=== PATIENT | female | born 1965 | race American Indian/Alaskan Native ===

== ENCOUNTER 2018-06-15 10:59 | Outpatient (CLI) | payer BC ==
--- NOTE | 2018-06-15 11:47 | Cat Scan Report ---
CT scan of pelvis without IV contrast: History: Right lower quadrant pain. Findings: Perivesical and perirectal adipose tissue appears normal. No free fluid in the cul-de-sac. No evidence of appendicitis or diverticulitis. Stool in colon. There is 3 circumscribed densities identified at the right lower inguinal area. The largest measures 4.2 cm. Impression: Multiple masses in the right inguinal region is probably multiple lymph nodes. Sonographic correlation may be advised.
== END 2018-06-15 11:00 | disposition home or self-care (01) ==
LOC: CT 10:59
PROVIDERS: ATTEND Surgery
DX: R19.09 Other intra-abdominal and pelvic swelling, mass and lump (principal)
CPT/HCPCS: 72192

== ENCOUNTER 2019-03-29 23:29 | Emergency (ER) | payer BC ==
[2019-03-30 00:06] LABS: Eosinophils # (Auto) 0.1 K/mm3 (0.0-0.4); Eosinophils % (Auto) 2.7 % (0.0-4.3); Monocytes # (Auto) 0.5 K/mm3 (0.0-0.8); Monocytes % (Auto) 13.7 % (0.0-7.3)
[2019-03-30 00:09] VITALS: BP 145/91
[2019-03-30] MEDS ORDERED: VICKS SINEX NS ONE (00:09)
[2019-03-30] MEDS ORDERED: VICKS SINEX ONE (00:12)
--- NOTE | 2019-03-30 00:22 | Emergency Department Report ---
ED ENT HPI - General Chief complaint: Nosebleed Stated complaint: NOSE/MOUTH BLEED Source: patient Mode of arrival: Ambulatory Limitations: No Limitations - History of Present Illness Initial comments: Mrs. Valderrama is a 53-year-old female with a history of glaucoma who presents with nosebleed from both nostrils since 3 PM this morning. She's had continuous bleeding from both nostrils since 3 PM. No history of URI symptoms. No history of seasonal allergies. She does not take any oral medications. Today she noticed 2 dark blisters in her mouth one on left inside of her left cheek and one on her left tongue. No previous history of bleeding or bruising. No recent use of antibiotics. No previous history of hypertension. No previous history of nosebleed. MD complaint: epistaxis -: Gradual, This afternoon Location: nose (both nostrils) Severity: mild Consistency: constant Improves with: other (ice application) Worsens with: none Associated Symptoms: other (blood-filled blisters on tongue and cheek) - Related Data Previous Rx's Medication Instructions Recorded Last Taken Type Prednisone [predniSONE 10 mg 10 mg PO .TAPER #1 tab.ds.pk 03/30/19 Unknown Rx (6-Day Pack, 21 Tabs)] Allergies Allergy/AdvReac Type Severity Reaction Status Date / Time No Known Allergies Allergy Unverified 06/15/18 10:59 ED Dental HPI - General Chief complaint: Nosebleed Stated complaint: NOSE/MOUTH BLEED Source: patient Mode of arrival: Ambulatory Limitations: No Limitations - Related Data Previous Rx's Medication Instructions Recorded Last Taken Type Prednisone [predniSONE 10 mg 10 mg PO .TAPER #1 tab.ds.pk 03/30/19 Unknown Rx (6-Day Pack, 21 Tabs)] Allergies Allergy/AdvReac Type Severity Reaction Status Date / Time No Known Allergies Allergy Unverified 06/15/18 10:59 ED Review of Systems ROS: Stated complaint: NOSE/MOUTH BLEED Other details as noted in HPI Comment: All other systems reviewed and negative Constitutional: denies: fever, malaise Cardiovascular: denies: chest pain Hematological/Lymphatic: denies: easy bleeding, easy bruising ED Past Medical Hx - Past Medical History Previous Medical History?: Yes Additional medical history: Glaucoma - Surgical History Past Surgical History?: No - Social History Smoking Status: Never Smoker Substance Use Type: None - Medications Home Medications: Home Medications Medication Instructions Recorded Confirmed Last Taken Type Prednisone [predniSONE 10 mg 10 mg PO .TAPER #1 tab.ds.pk 03/30/19 Unknown Rx (6-Day Pack, 21 Tabs)] ED Physical Exam - General Limitations: No Limitations General appearance: alert, in no apparent distress - Head Head exam: Present: atraumatic, normocephalic - Eye Eye exam: Present: normal appearance - ENT ENT exam: Present: mucous membranes moist (to dark blisters 1.5 cm left cheek inner mucosa, 0.9 cm dark blister anterior central tongue), other (mild amount of blood in both nostrils without active bleeding) - Neck Neck exam: Present: normal inspection - Respiratory Respiratory exam: Present: normal lung sounds bilaterally. Absent: respiratory distress, wheezes, rales, rhonchi - Cardiovascular Cardiovascular Exam: Present: regular rate, normal rhythm, normal heart sounds. Absent: systolic murmur, diastolic murmur, rubs, gallop - GI/Abdominal GI/Abdominal exam: Present: soft, normal bowel sounds. Absent: distended, tenderness, guarding, rebound - Extremities Exam Extremities exam: Present: normal inspection - Back Exam Back exam: Present: normal inspection - Neurological Exam Neurological exam: Present: alert, oriented X3 - Psychiatric Psychiatric exam: Present: normal affect, normal mood - Skin Skin exam: Present: warm, dry, intact, normal color. Absent: rash ED Course Vital Signs 03/29/19 03/30/19 23:34 00:07 Temperature 97.7 F 98.5 F Pulse Rate 90 79 Respiratory 20 16 Rate Blood Pressure 176/101 Blood Pressure 145/91 [Left] O2 Sat by Pulse 98 98 Oximetry ED Medical Decision Making - Lab Data Result diagrams: 03/29/19 23:51 03/29/19 23:51 - Medical Decision Making Mrs. Valderrama presents with epistaxis possibly posterior with bleeding from both nostril. Minor bleeding, not active in ED. AFter Afrin administration, no further bleeding,. With mouth blisters and thrombocytopenia, suspect ITP. Given Prednisone in the ED. Given prescription from Prednisone. She will f/u with her PCP on Monday. she will also make appt with cylinder press feeder to which she was referred. She und erstands to return is nosebleeding is not controlled at home with AFrin and pressure. She understands to return for bleeding from any other source. Critical care attestation.: If time is entered above; I have spent that time in minutes in the direct care of this critically ill patient, excluding procedure time. ED Disposition Clinical Impression: Epistaxis, Acute ITP Disposition: DC- TO HOME OR SELFCARE Is pt being admited?: No Does the pt Need Aspirin: No Condition: Stable Instructions: Thrombocytopenia (ED) Prescriptions: Prednisone [predniSONE 10 mg (6-Day Pack, 21 Tabs)] 10 mg PO .TAPER #1 tab.ds.pk Referrals: ARYAN SANON MD [Staff Physician] - [facility] [Referring] - F[facility]
[2019-03-30 00:26] LABS: BUN/Creatinine Ratio 10; Blood Urea Nitrogen 7 mg/dL (7-17); Calcium 9.3 mg/dL (8.4-10.2); Hemolysis Index 35
[2019-03-30 00:54] LABS: Hematocrit 36.9 % (30.3-42.9); Hemoglobin 12.6 gm/dl (10.1-14.3); Mean Corpuscular Volume 79 fl (79-97)
[2019-03-30 00:55] LABS: Basophils % (Auto) 0.3 % (0.0-1.8); Lymphocytes # (Auto) 1.6 K/mm3 (1.2-5.4); Lymphocytes % (Auto) 41.4 % (13.4-35.0); Mean Corpuscular HGB Conc 34 % (30-34); Red Cell Distribution Width 15.6 % (13.2-15.2)
[2019-03-30 00:58] LABS: Platelet Count 7 K/mm3 (140-440)
[2019-03-30] MEDS ORDERED: DELTASONE PO ONE (01:01)
== END 2019-03-30 01:25 | disposition home or self-care (01) ==
LOC: ED 23:29
DX: D69.3 Immune thrombocytopenic purpura (principal); Z86.69 Personal history of other diseases of the nervous system and sense organs
CPT/HCPCS: 36415; 80048; 85025; 99283; J7512

== ENCOUNTER 2019-04-01 12:13 | Inpatient (IN) | payer BC ==
--- NOTE | 2019-04-01 12:58 | Emergency Department Report ---
Blank Doc - Documentation Documentation: This is a 53-year-old female that presents with nose bleed. Patient was sent by PCP for low platelets. This initial assessment/diagnostic orders/clinical plan/treatment(s) is/are subject to change based on patient's health status, clinical progression and re- assessment by fellow clinical providers in the ED. Further treatment and workup at subsequent clinical providers discretion. Patient/guardians urged not to elope from the ED as their condition may be serious if not clinically assessed and managed. Initial orders include: 1- Patient sent to MAIN ED for further evaluation and treatment 2- labs
[2019-04-01 14:31] LABS: Basophils % (Auto) 0.3 % (0.0-1.8); Hematocrit 38.4 % (30.3-42.9); Lymphocytes # (Auto) 0.6 K/mm3 (1.2-5.4); Lymphocytes % (Auto) 9.1 % (13.4-35.0); Mean Corpuscular HGB Conc 34 % (30-34); Mean Corpuscular Volume 77 fl (79-97); Monocytes # (Auto) 0.2 K/mm3 (0.0-0.8); Monocytes % (Auto) 3.8 % (0.0-7.3); Red Blood Count 4.99 M/mm3 (3.65-5.03)
[2019-04-01 14:37] LABS: Platelet Count 7 K/mm3 (140-440)
[2019-04-01 14:41] LABS: INR 0.98 (0.87-1.13)
[2019-04-01 14:43] LABS: BUN/Creatinine Ratio 17; Blood Urea Nitrogen 12 mg/dL (7-17); Calcium 9.2 mg/dL (8.4-10.2); Hemolysis Index 9
[2019-04-01 14:49] LABS: Partial Thromboplastin Time 24.9 Sec. (24.2-36.6)
--- NOTE | 2019-04-01 18:09 | Emergency Department Report ---
HPI - General Chief Complaint: Nosebleed Time Seen by Provider: 04/01/19 12:57 - HPI HPI: Room 4 The patient is a 53-year-old female presenting with a chief complaint of thrombocytopenia. The patient states it is ago she developed nasal bleeding and bruising on the inside of her mouth. Patient states she came to the ED and was diagnosed with ITP and started on a prednisone taper. The patient states she went to see her primary physician today who [facility] back to the ED. Patient denies headache nausea or vomiting. Patient also has noticed small bruises diffusely over her body Location: [See above] Duration: [See above] Quality: [See above] Severity: [See above] Modifying factors: [see above] Context: [see above] Mode of transportation: [not driving] ED Past Medical Hx - Past Medical History Previous Medical History?: Yes Additional medical history: Glaucoma - Surgical History Past Surgical History?: No - Family History Family history: no significant - Social History Smoking Status: Never Smoker Substance Use Type: None - Medications Home Medications: Home Medications Medication Instructions Recorded Confirmed Last Taken Type Prednisone [predniSONE 10 mg 10 mg PO .TAPER #1 tab.ds.pk 03/30/19 Unknown Rx (6-Day Pack, 21 Tabs)] ED Review of Systems ROS: Stated complaint: DR REQUEST/BLEEDING FROM NOSE/MOUTH Other details as noted in HPI Constitutional: no symptoms reported Eyes: denies: eye pain ENT: denies: throat pain Respiratory: no symptoms reported Cardiovascular: denies: chest pain Endocrine: no symptoms reported Gastrointestinal: denies: abdominal pain, nausea, vomiting Genitourinary: denies: dysuria Musculoskeletal: denies: back pain Skin: lesions Neurological: denies: headache Hematological/Lymphatic: easy bleeding, easy bruising Physical Exam - Physical Exam Vital Signs: Vital Signs 04/01/19 12:51 Temperature 97.5 F L Pulse Rate 82 Respiratory 18 Rate Blood Pressure 148/88 O2 Sat by Pulse 99 Oximetry Physical Exam: GENERAL: The patient is well-developed well-nourished female lying on stretcher not appearing to be in acute distress. [] HEENT: Normocephalic. Atraumatic. Extraocular motions are intact. Buccal he matomas bilaterally NECK: Supple. Trachea midline CHEST/LUNGS: Clear to auscultation. There is no respiratory distress noted. HEART/CARDIOVASCULAR: Regular. There is no tachycardia. There is no gallop rub or murmur. ABDOMEN: Abdomen is soft, nontender. Patient has normal bowel sounds. There is no abdominal distention. SKIN: There are diffuse purpura. There is no diaphoresis. NEURO: The patient is awake, alert, and oriented. The patient is cooperative. The patient has normal speech MUSCULOSKELETAL: There is no evidence of acute injury. ED Course Vital Signs 04/01/19 12:51 Temperature 97.5 F L Pulse Rate 82 Respiratory 18 Rate Blood Pressure 148/88 O2 Sat by Pulse 99 Oximetry ED Medical Decision Making - Lab Data Result diagrams: 04/01/19 14:16 04/01/19 14:16 Laboratory Tests 04/01/19 04/01/19 04/01/19 14:16 14:16 14:16 WBC 6.4 RBC 4.99 Hgb 13.0 Hct 38.4 MCV 77 L MCH 26 L MCHC 34 RDW 15.0 Plt Count 7 L* Lymph % (Auto) 9.1 L [place] % (Auto) 3.8 Eos % (Auto) 0.0 Baso % (Auto) 0.3 Lymph # 0.6 L [place] # 0.2 Eos # 0.0 Baso # 0.0 Seg Neutrophils % 86.8 H Seg Neutrophils # 5.6 PT 12.7 INR 0.98 APTT 24.9 Sodium 135 L Potassium 3.6 Chloride 98.9 Carbon Dioxide 23 Anion Gap 17 BUN 12 Creatinine 0.7 Estimated GFR > 60 BUN/Creatinine Ratio 17 Glucose 172 H Calcium 9.2 Blood Type Antibody Screen 04/01/19 14:20 WBC RBC Hgb Hct MCV MCH MCHC RDW Plt Count Lymph % (Auto) [place] % (Auto) Eos % (Auto) Baso % (Auto) Lymph # [place] # Eos # Baso # Seg Neutrophils % Seg Neutrophils # PT INR APTT Sodium Potassium Chloride Carbon Dioxide Anion Gap BUN Creatinine Estimated GFR BUN/Creatinine Ratio Glucose Calcium Blood Type O POSITIVE Antibody Screen Negative - Differential Diagnosis ITP Critical care attestation.: If time is entered above; I have spent that time in minutes in the direct care of this critically ill patient, excluding procedure time. ED Disposition Clinical Impression: Acute ITP Disposition: OP ADMIT IP TO THIS HOSP Is pt being admited?: Yes Does the pt Need Aspirin: No Condition: Fair Referrals: JULIO C CHANG MD [Primary Care Provider] - 3-5 Days Time of Disposition: 18:11 (hospitalist paged (Dr Rose))
[2019-04-01] MEDS ORDERED: SODIUM CHLORIDE FLUSH SYRINGE 10 ML IV PRN (18:30)
[2019-04-01] MEDS ORDERED: PROVENTIL IH PRN (18:30)
--- NOTE | 2019-04-01 18:48 | History and Physical Report ---
History of Present Illness Chief complaint: My nose was bleeding History of present illness: 53 YO Female with glaucoma, thrombocytopenia presents to ED for reevaluation. Pt seen and evaluated on 03/31/19 for thrombocytopenia. Pt discharged home with steroid therapy and outpatient platelet transfusion. Pt returns today at the request of her PCP for platelet transfusion. Pt transported to [facility] via private vehicle. Pt seen and evaluated in ED and foung to have Thrombocytopenia with platelet count of 7 without evidence of active bleeding. Pt denies fever, chills, CP, palpitations, joint pain, trauma, cough, leg swelling, abdominal pain, flank pain or recent ill contacts. Platelet transfusion and IVIG ordered in ED prior to my exam. Hematology service consulted in ED and recommend IVIG and platelet transfusion. No prior admission for review. PT admitted to [facility] for platelet transfusion as per Hematology recommendations. Past History Past Medical History: other (glaucoma,thrombocytopenia) Past Surgical History: No surgical history, Other (reviewed) Social history: . denies: smoking, alcohol abuse, prescription drug abuse Family history: no significant family history Medications and Allergies Allergies Allergy/AdvReac Type Severity Reaction Status Date / Time No Known Allergies Allergy Unverified 06/15/18 10:59 Home Medications Medication Instructions Recorded Confirmed Last Taken Type Prednisone [predniSONE 10 mg 10 mg PO .TAPER #1 tab.ds.pk 03/30/19 Unknown Rx (6-Day Pack, 21 Tabs)] Active Meds: Active Medications Albuterol (Proventil) 2.5 mg IH Q3HRT PRN PRN Reason: Shortness Of Breath Sodium Chloride (Sodium Chloride Flush Syringe 10 Ml) 10 ml IV BID HODAN Sodium Chloride (Sodium Chloride Flush Syringe 10 Ml) 10 ml IV PRN PRN PRN Reason: LINE FLUSH Review of Systems Constitutional: no weight loss, no weight gain, no fever Ears, nose, mouth and throat: epistaxis, no ear discharge, no tinnitis, no nose pain, no nasal congestion, no bleeding gums, no dysphagia, no hoarseness, no sore throat, no swelling in mouth Breasts: no change in shape, no swelling, no mass Cardiovascular: no chest pain, no orthopnea, no palpitations, no edema, no syncope Respiratory: no cough, no cough with sputum, no excessive sputum, no shortness of breath Gastrointestinal: no abdominal pain, no nausea, no diarrhea, no constipation Genitourinary Female: no pelvic pain, no flank pain, no dysuria, no urinary frequency Rectal: no pain, no incontinence Musculoskeletal: no neck pain, no shooting arm pain, no arm numbness/tingling Integumentary: no pruritis, no redness, no sores, no boils, no blisters Neurological: no head injury, no paralysis, no vertigo, no headaches, no migraines Psychiatric: no anxiety, no sleep disturbances, no hypersomnia, no change in libido, no disorientation Endocrine: no cold intolerance, no polyphagia, no polydipsia, no nocturia Hematologic/Lymphatic: no easy bruising, no easy bleeding, no lymphadenopathy, no lymphedema Allergic/Immunologic: no urticaria, no allergic rhinitis, no persistent infections, no anaphylaxis Exam - Constitutional Vitals: Temp Pulse Resp BP Pulse Ox 97.5 F L 82 18 148/88 100 04/01/19 12:51 04/01/19 12:51 04/01/19 18:32 04/01/19 12:51 04/01/19 18:32 General appearance: Present: no acute distress, well-nourished - EENT Eyes: Present: PERRL ENT: hearing intact, clear oral mucosa - Neck Neck: Present: supple, normal ROM - Respiratory Respiratory effort: normal Respiratory: bilateral: CTA - Cardiovascular Heart Sounds: Present: S1 & S2. Absent: rub, click - Extremities Extremities: pulses symmetrical, No edema Peripheral Pulses: within normal limits - Abdominal General gastrointestinal: Present: soft, non-tender, non-distended, normal bowel sounds Female genitourinary: Present: normal - Integumentary Integumentary: Present: clear, warm, dry - Musculoskeletal Musculoskeletal: gait normal, strength equal bilaterally - Psychiatric Psychiatric: appropriate mood/affect, intact judgment & insight - Neurologic Neurologic: CNII-XII intact, moves all extremities Results - Labs CBC & Chem 7: 04/02/19 04:44 04/02/19 04:44 Labs: Abnormal lab results 04/01/19 04/01/19 Range/Units 14:16 14:16 MCV 77 L (79-97) fl MCH 26 L (28-32) pg Plt Count 7 L* (140-440) K/mm3 Lymph % (Auto) 9.1 L (13.4-35.0) % Lymph # 0.6 L (1.2-5.4) K/mm3 Seg Neutrophils % 86.8 H (40.0-70.0) % Sodium 135 L (137-145) mmol/L Glucose 172 H (65-100) mg/dL Assessment and Plan - Patient Problems (1) Acute ITP Current Visit: Yes Status: Acute Plan to address problem: Hemotology consulted in ED, Admit to IMCU, Platelet transfusion and IVIG infusion as per Hemotology team. supportive care. (2) Epistaxis Current Visit: No Status: Acute Plan to address problem: Resolved at time of admission, No active bleeding, (3) DVT prophylaxis Current Visit: Yes Status: Acute Plan to address problem: Hold anticoagulation at this dime due to risk of bleeding.
--- NOTE | 2019-04-01 21:47 | Event Note ---
Date: 04/01/19 [id number]?
[2019-04-01] MEDS ORDERED: GAMMAGARD IV SCH (22:00)
[2019-04-01] MEDS ORDERED: PRIVIGEN IV SCH (22:00)
[2019-04-01] MEDS ORDERED: VIAFLEX EMPTY CONTAINER IV SCH ×2 (22:00)
[2019-04-01] MEDS: SODIUM CHLORIDE FLUSH SYRINGE 10 ML IV SCH (22:51)
[2019-04-02 05:11] LABS: Basophils % (Auto) 0.3 % (0.0-1.8); Eosinophils % (Auto) 0.6 % (0.0-4.3); Hematocrit 35.3 % (30.3-42.9); Hemoglobin 11.7 gm/dl (10.1-14.3); Lymphocytes # (Auto) 1.5 K/mm3 (1.2-5.4); Lymphocytes % (Auto) 19.1 % (13.4-35.0); Mean Corpuscular HGB Conc 33 % (30-34); Mean Corpuscular Volume 79 fl (79-97); Monocytes # (Auto) 1.2 K/mm3 (0.0-0.8); Monocytes % (Auto) 15.6 % (0.0-7.3); Red Blood Count 4.49 M/mm3 (3.65-5.03); Red Cell Distribution Width 15.3 % (13.2-15.2)
[2019-04-02 05:45] LABS: Platelet Count 4 K/mm3 (140-440)
[2019-04-02 06:16] LABS: Alanine Aminotransferase 41 units/L (7-56); Albumin 3.3 g/dL (3.9-5); BUN/Creatinine Ratio 20; Blood Urea Nitrogen 12 mg/dL (7-17); Calcium 9.3 mg/dL (8.4-10.2); Hemolysis Index 25; Iron 53 ug/dL (37-170); Total Iron Binding Capacity 259 mcg/dL (250-450)
--- NOTE | 2019-04-02 06:21 | Event Note ---
Date: 04/02/19 Received call from CHAYA Kelly for critical lab value, PLT 4. Pt received IVIG 3.2g at 2251 (04/01/19). Ordered stat repeat CBC and advised RN to notify Dr. Miller (plasterer spot) of critical lab value.
[2019-04-02] MEDS ORDERED: DELTASONE ONE (07:31)
[2019-04-02] MEDS: DELTASONE PO SCH ×2 (07:34→09:32)
[2019-04-02 08:24] LABS: Basophils % (Auto) 0.3 % (0.0-1.8); Eosinophils # (Auto) 0.1 K/mm3 (0.0-0.4); Eosinophils % (Auto) 0.8 % (0.0-4.3); Hematocrit 36.2 % (30.3-42.9); Hemoglobin 12.1 gm/dl (10.1-14.3); Lymphocytes # (Auto) 1.8 K/mm3 (1.2-5.4); Lymphocytes % (Auto) 20.3 % (13.4-35.0); Mean Corpuscular HGB Conc 34 % (30-34); Mean Corpuscular Volume 78 fl (79-97); Monocytes # (Auto) 1.1 K/mm3 (0.0-0.8); Monocytes % (Auto) 12.1 % (0.0-7.3); Red Blood Count 4.66 M/mm3 (3.65-5.03); Red Cell Distribution Width 15.2 % (13.2-15.2)
[2019-04-02 09:12] LABS: Platelet Count 16 K/mm3 (140-440)
[2019-04-02] MEDS: SODIUM CHLORIDE FLUSH SYRINGE 10 ML IV SCH ×2 (09:33→22:49)
[2019-04-02] MEDS: PROTONIX PO SCH (09:33)
[2019-04-02] MEDS ORDERED: PROTONIX PO ONE (09:36)
[2019-04-02] MEDS ORDERED: DELTASONE PO SCH (10:00)
--- NOTE | 2019-04-02 12:56 | Hem/Onc Progress Note ---
Assessment and Plan 1. 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 The etiology is not clear, usually they have viral etiology preceding, or medication. 2. Oral ecchymosis secondary to low platelets 3. History of glaucoma. 4. IVIG, smear evaluation, deficiency investigation. If there are more symptoms, we will look into platelet transfusion. 04/02 - h/o nose bleed low folate - replace plt 16 - will ct ivig pt on PPI and steroids - Patient Problems (1) Acute ITP Current Visit: Yes Status: Acute Subjective Date of service: 04/02/19 Principal diagnosis: ITP Interval history: s/p ivig Objective - Constitutional Vitals: Last Vital Signs Temp 97.5 F L 04/01/19 12:51 Pulse 71 04/02/19 10:00 Resp 16 04/02/19 10:00 BP 151/82 04/02/19 10:00 Pulse Ox 92 04/02/19 10:00 Pain Intensity (0-10): denies any pain General appearance: no acute distress Performance status: 2- selfcare, ambulatory - EENT Eyes: EOM intact ENT: hearing intact, other (oral echymosis) Lymph node exam: negative cervical - Neck Neck: normal ROM - Respiratory Respiratory effort: Positive: normal Respiratory: bilateral: CTA - Cardiovascular Heart Sounds: Present: S1 & S2 Extremities: No edema - Gastrointestinal General gastrointestinal: Present: soft, non-tender Rectal Exam: deferred - Genitourinary Female genitourinary: Present: deferred - Integumentary Integumentary: warm - Musculoskeletal Musculoskeletal: strength equal bilaterally - Neurologic Neurologic: moves all extremities - Labs Lab Results: Laboratory Results - last 24 hr 04/01/19 04/01/19 04/01/19 14:16 14:16 14:16 WBC 6.4 RBC 4.99 Hgb 13.0 Hct 38.4 MCV 77 L MCH 26 L MCHC 34 RDW 15.0 Plt Count 7 L* Lymph % (Auto) 9.1 L [place] % (Auto) 3.8 Eos % (Auto) 0.0 Baso % (Auto) 0.3 Lymph # 0.6 L [place] # 0.2 Eos # 0.0 Baso # 0.0 Seg Neutrophils % 86.8 H Seg Neutrophils # 5.6 PT 12.7 INR 0.98 APTT 24.9 Sodium 135 L Potassium 3.6 Chloride 98.9 Carbon Dioxide 23 Anion Gap 17 BUN 12 Creatinine 0.7 Estimated GFR > 60 BUN/Creatinine Ratio 17 Glucose 172 H Calcium 9.2 Iron TIBC Ferritin Total Bilirubin AST ALT Alkaline Phosphatase Total Protein Albumin Albumin/Globulin Ratio Vitamin B12 Folate Blood Type Antibody Screen 04/01/19 04/02/19 04/02/19 14:20 04:44 04:44 WBC 7.8 RBC 4.49 Hgb 11.7 Hct 35.3 MCV 79 MCH 26 L MCHC 33 RDW 15.3 H Plt Count 4 L* Lymph % (Auto) 19.1 [place] % (Auto) 15.6 H Eos % (Auto) 0.6 Baso % (Auto) 0.3 Lymph # 1.5 [place] # 1.2 H Eos # 0.0 Baso # 0.0 Seg Neutrophils % 64.4 Seg Neutrophils # 5.0 PT INR APTT Sodium 137 Potassium 3.7 Chloride 100.3 Carbon Dioxide 25 Anion Gap 15 BUN 12 Creatinine 0.6 L Estimated GFR > 60 BUN/Creatinine Ratio 20 Glucose 99 Calcium 9.3 Iron 53 TIBC 259 Ferritin Total Bilirubin 0.30 AST 36 ALT 41 Alkaline Phosphatase 136 H Total Protein 7.1 Albumin 3.3 L Albumin/Globulin Ratio 0.9 Vitamin B12 Folate Blood Type O POSITIVE Antibody Screen Negative 04/02/19 04/02/19 04/02/19 04:44 04:44 04:44 WBC RBC Hgb Hct MCV MCH MCHC RDW Plt Count Lymph % (Auto) [place] % (Auto) Eos % (Auto) Baso % (Auto) Lymph # [place] # Eos # Baso # Seg Neutrophils % Seg Neutrophils # PT INR APTT Sodium Potassium Chloride Carbon Dioxide Anion Gap BUN Creatinine Estimated GFR BUN/Creatinine Ratio Glucose Calcium Iron TIBC Ferritin 63.0 Total Bilirubin AST ALT Alkaline Phosphatase Total Protein Albumin Albumin/Globulin Ratio Vitamin B12 575.2 Folate 6.81 L Blood Type Antibody Screen 04/02/19 08:20 WBC 9.1 RBC 4.66 Hgb 12.1 Hct 36.2 MCV 78 L MCH 26 L MCHC 34 RDW 15.2 Plt Count 16 L* D Lymph % (Auto) 20.3 [place] % (Auto) 12.1 H Eos % (Auto) 0.8 Baso % (Auto) 0.3 Lymph # 1.8 Reeves # 1.1 H Eos # 0.1 Baso # 0.0 Seg Neutrophils % 66.5 Seg Neutrophils # 6.0 PT INR APTT Sodium Potassium Chloride Carbon Dioxide Anion Gap BUN Creatinine Estimated GFR BUN/Creatinine Ratio Glucose Calcium Iron TIBC Ferritin Total Bilirubin AST ALT Alkaline Phosphatase Total Protein Albumin Albumin/Globulin Ratio Vitamin B12 Folate Blood Type Antibody Screen Medications & Allergies - Medications Allergies/Adverse Reactions: Allergies No Known Allergies Allergy (Unverified 06/15/18 10:59) Home Medications: Home Medications Medication Instructions Recorded Confirmed Last Taken Type Prednisone [predniSONE 10 mg 10 mg PO .TAPER #1 tab.ds.pk 03/30/19 04/02/19 04/02/19 Rx (6-Day Pack, 21 Tabs)] Latanoprost 0.005% [Xalatan 0.005%] 1 drop OU HS 04/02/19 04/02/19 Unknown History Active Medications: Generic Name Dose Route Start Last Admin Trade Name Freq PRN Reason Stop Dose Admin Albuterol 2.5 mg 04/01/19 18:30 Proventil IH Q3HRT PRN Shortness Of Breath Folic Acid 1 mg 04/02/19 14:00 Folvite PO QDAY HODAN Immune Globulin 32 gm/ 320 mls @ 32 mls/hr 04/02/19 22:00 Miscellaneous Information IV 04/06/19 21:59 Q24H HODAN Pantoprazole Sodium 40 mg 04/02/19 10:00 04/02/19 09:33 Protonix PO 40 mg QDAY HODAN Administration Prednisone 60 mg 04/02/19 06:25 04/02/19 09:32 Deltasone PO Not Given QDAY HODAN Sodium Chloride 10 ml 04/01/19 22:00 04/02/19 09:33 Sodium Chloride Flush Syringe 10 Ml IV 10 ml BID HODAN Administration Sodium Chloride 10 ml 04/01/19 18:30 Sodium Chloride Flush Syringe 10 Ml IV PRN PRN LINE FLUSH
[2019-04-02] MEDS: FOLVITE PO SCH (14:50)
--- NOTE | 2019-04-02 16:17 | Progress Note ---
Assessment and Plan Assessment and plan: 53 YO Female with glaucoma, thrombocytopenia presents to ED for reevaluation. Pt seen and evaluated on 03/31/19 for thrombocytopenia. Pt discharged home with steroid therapy and outpatient platelet transfusion. Pt returns today at the request of her PCP for platelet transfusion. Pt transported to [facility] via private vehicle. Pt seen and evaluated in ED and foung to have Thrombocytopenia with platelet count of 7 without evidence of active bleeding. Pt denies fever, chills, CP, palpitations, joint pain, trauma, cough, leg swelling, abdominal pain, flank pain or recent ill contacts. Platelet transfusion and IVIG ordered in ED prior to my exam. Hematology service consulted in ED and recommend IVIG and platelet transfusion. No prior admission for review. PT admitted to IMCU for platelet transfusion as per Hematology recommendations. Severe thrombocytopenia - Patient was given IVIG - Hematology oncology consult appreciated - Platelet this morning with 8 - Follow platelet - No active bleeding DVT prophylaxis - SCD Disposition - Continue IMCU care History Interval history: Patient was seen and evaluated this morning, patient has minimal bleeding from the mouth. No bleeding from other parts of her body. Hospitalist Physical - Physical exam Narrative exam: Not in cardiopulmonary distress. The patient appeared well nourished and normally developed. Vital signs as documented. Head exam is unremarkable. Dusky discoloration in the bucca mucosa, likely due to petechiae. No scleral icterus . Neck is without jugular venous distension, thyromegaly, or carotid bruits. Lungs are clear to auscultation. Cardiac exam reveals regular rate and Rhythm. First and second heart sounds normal. No murmurs, rubs or gallops. Abdominal exam reveals normal bowel sounds, no masses, no organomegaly and no aortic enlargement. Extremities are nonedematous and both femoral and pedal pulses are normal. CYCLE SPECIALIST: Alert and oriented 3. No focal weakness. - Constitutional Vitals: Temp Pulse Resp BP Pulse Ox 97.5 F L 86 16 129/74 97 04/01/19 12:51 04/02/19 13:00 04/02/19 13:00 04/02/19 13:00 04/02/19 13:00 General appearance: Present: no acute distress, well-nourished Results - Labs CBC & Chem 7: 04/03/19 13:20 04/03/19 05:47 Labs: Laboratory Last Values WBC 9.1 K/mm3 (4.5-11.0) 04/02/19 08:20 RBC 4.66 M/mm3 (3.65-5.03) 04/02/19 08:20 Hgb 12.1 gm/dl (10.1-14.3) 04/02/19 08:20 Hct 36.2 % (30.3-42.9) 04/02/19 08:20 MCV 78 fl (79-97) L 04/02/19 08:20 MCH 26 pg (28-32) L 04/02/19 08:20 MCHC 34 % (30-34) 04/02/19 08:20 RDW 15.2 % (13.2-15.2) 04/02/19 08:20 Plt Count 16 K/mm3 (140-440) L* D 04/02/19 08:20 Lymph % (Auto) 20.3 % (13.4-35.0) 04/02/19 08:20 [place] % (Auto) 12.1 % (0.0-7.3) H 04/02/19 08:20 Eos % (Auto) 0.8 % (0.0-4.3) 04/02/19 08:20 Baso % (Auto) 0.3 % (0.0-1.8) 04/02/19 08:20 Lymph # 1.8 K/mm3 (1.2-5.4) 04/02/19 08:20 [place] # 1.1 K/mm3 (0.0-0.8) H 04/02/19 08:20 Eos # 0.1 K/mm3 (0.0-0.4) 04/02/19 08:20 Baso # 0.0 K/mm3 (0.0-0.1) 04/02/19 08:20 Seg Neutrophils % 66.5 % (40.0-70.0) 04/02/19 08:20 Seg Neutrophils # 6.0 K/mm3 (1.8-7.7) 04/02/19 08:20 PT 12.7 Sec. (12.2-14.9) 04/01/19 14:16 INR 0.98 (0.87-1.13) 04/01/19 14:16 APTT 24.9 Sec. (24.2-36.6) 04/01/19 14:16 Sodium 137 mmol/L (137-145) 04/02/19 04:44 Potassium 3.7 mmol/L (3.6-5.0) 04/02/19 04:44 Chloride 100.3 mmol/L (98-107) 04/02/19 04:44 Carbon Dioxide 25 mmol/L (22-30) 04/02/19 04:44 15 mmol/L 04/02/19 04:44 BUN 12 mg/dL (7-17) 04/02/19 04:44 0.6 mg/dL (0.7-1.2) L 04/02/19 04:44 Estimated GFR > 60 ml/min 04/02/19 04:44 20 % 04/02/19 04:44 Glucose 99 mg/dL (65-100) 04/02/19 04:44 Calcium 9.3 mg/dL (8.4-10.2) 04/02/19 04:44 Iron 53 ug/dL (37-170) 04/02/19 04:44 TIBC 259 mcg/dL (250-450) 04/02/19 04:44 63.0 ng/mL (13.0-400.0) 04/02/19 04:44 0.30 mg/dL (0.1-1.2) 04/02/19 04:44 AST 36 units/L (5-40) 04/02/19 04:44 ALT 41 units/L (7-56) 04/02/19 04:44 136 units/L (35-129) H 04/02/19 04:44 7.1 g/dL (6.3-8.2) 04/02/19 04:44 3.3 g/dL (3.9-5) L 04/02/19 04:44 0.9 % 04/02/19 04:44 Vitamin B12 575.2 pg/mL (211-911) 04/02/19 04:44 6.81 ng/mL (7.3-26.0) L 04/02/19 04:44 Blood Type O POSITIVE 04/01/19 14:20 Antibody Screen Negative 04/01/19 14:20 Active Medications - Current Medications Current Medications: Generic Name Dose Route Start Last Admin Trade Name Freq PRN Reason Stop Dose Admin Albuterol 2.5 mg 04/01/19 18:30 Proventil IH Q3HRT PRN Shortness Of Breath Folic Acid 1 mg 04/02/19 14:00 Folvite PO QDAY HODAN Immune Globulin 32 gm/ 320 mls @ 32 mls/hr 04/02/19 22:00 Miscellaneous Information IV 04/06/19 21:59 Q24H HODAN Pantoprazole Sodium 40 mg 04/02/19 10:00 04/02/19 09:33 Protonix PO 40 mg QDAY HODAN Administration Prednisone 60 mg 04/02/19 06:25 04/02/19 09:32 Deltasone PO Not Given QDAY HODAN Sodium Chloride 10 ml 04/01/19 22:00 04/02/19 09:33 Sodium Chloride Flush Syringe 10 Ml IV 10 ml BID HODAN Administration Sodium Chloride 10 ml 04/01/19 18:30 Sodium Chloride Flush Syringe 10 Ml IV PRN PRN LINE FLUSH
[2019-04-02] MEDS: VIAFLEX EMPTY CONTAINER IV SCH (22:48)
[2019-04-02] MEDS: PRIVIGEN IV SCH (22:48)
--- NOTE | 2019-04-03 06:03 | Consultation ---
REFERRING PHYSICIAN: Dr. Salazar. REASON FOR CONSULTATION: Thrombocytopenia, bruises, nosebleed. HISTORY OF PRESENT ILLNESS: I saw the patient, a 53-year-old female in the medical floor. The patient had nosebleed on Monday. She came to the ER. The patient has history of glaucoma. The patient ate garlic and she thinks that had some role, but after she came to the hospital, platelet was found to be low. She was discharged for outpatient followup. She saw ____, the primary care, who called me to say the platelet counts were low and she sent the patient back. The patient also had history of bruises/ecchymosis, the nosebleed is intermittent. The patient's platelets were low. I have been asked to evaluate the patient. Apart from the nosebleed, no other bleeding. There is also some mild discomfort. No headache. No visual disturbances. No chest pain. No shortness of breath at rest. No abdominal pain. No nausea. No vomiting. No diarrhea. No dysuria. The patient denies any recent travel. No history of sinus infection, flu-like symptoms or urinary tract infection in the recent past. No new medications. PAST MEDICAL HISTORY: Glaucoma, newly diagnosed thrombocytopenia. PAST SURGICAL HISTORY: Nil significant. SOCIAL HISTORY: . No history of tobacco or alcohol usage. FAMILY HISTORY: Noncontributory. The patient is from [facility]. ALLERGIES: None. MEDICATIONS: The patient was in the ER and was discharged with prednisone. PHYSICAL EXAMINATION: VITAL SIGNS: Temperature 97.5, pulse 82, respirations 18, BP 148/88. HEENT: No pallor. No icterus. Oral ecchymosis present. NECK: No neck lymph nodes. HEART: S1, S2. LUNGS: Clear to auscultation. ABDOMEN: Soft. EXTREMITIES: No calf tenderness. NEUROLOGIC: Alert, awake, oriented. LABORATORY DATA: White cell 6.4, hemoglobin 13, MCV 77, platelet 7. Potassium 3.6, creatinine 0.7, calcium 9.2. ASSESSMENT: 1. 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 The etiology is not clear, usually they have viral etiology preceding, not medication. 2. Oral ecchymosis secondary to low platelets 3. History of glaucoma. 4. We will look into IVIG, smear evaluation, deficiency investigation. If there are more symptoms, we will look into platelet transfusion. JOB# [id number] LARISSA/JESSE
[2019-04-03 06:13] LABS: Hematocrit 35.1 % (30.3-42.9); Hemoglobin 11.5 gm/dl (10.1-14.3); Mean Corpuscular HGB Conc 33 % (30-34); Mean Corpuscular Volume 80 fl (79-97); Red Blood Count 4.41 M/mm3 (3.65-5.03); Red Cell Distribution Width 15.4 % (13.2-15.2)
[2019-04-03 06:22] LABS: Platelet Count 5 K/mm3 (140-440)
[2019-04-03 06:34] LABS: BUN/Creatinine Ratio 15; Blood Urea Nitrogen 9 mg/dL (7-17); Calcium 9.1 mg/dL (8.4-10.2); Hemolysis Index 8
--- NOTE | 2019-04-03 07:43 | Hem/Onc Progress Note ---
Assessment and Plan 1. 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 The etiology is not clear, usually they have viral etiology preceding, or medication. 2. Oral ecchymosis secondary to low platelets 3. History of glaucoma. 4. IVIG, smear evaluation, deficiency investigation. 04/03 - h/o nose bleed low folate - replace plt lower than yesterday - will ct ivig pt on PPI and steroids pharmacy called - shortage of ivig path called - low plt no other wbc abnormality plt transfusion if no improvement - splenectomy vs rituxan - vs time for steroids to act? - Patient Problems (1) Acute ITP Current Visit: Yes Status: Acute Subjective Date of service: 04/03/19 Principal diagnosis: low plt Interval history: ivig - day 3 today Objective - Constitutional Vitals: Last Vital Signs Temp 98.4 F 04/03/19 04:00 Pulse 83 04/03/19 03:40 Resp 13 04/03/19 03:40 BP 140/80 04/03/19 03:40 Pulse Ox 98 04/03/19 03:40 Pain Intensity (0-10): denies any pain General appearance: no acute distress Performance status: 3-limited selfcare - EENT Eyes: EOM intact ENT: other (echymosis - oral - buccal mucosa) Lymph node exam: negative cervical - Neck Neck: normal ROM - Respiratory Respiratory effort: Positive: normal Respiratory: bilateral: CTA - Cardiovascular Heart Sounds: Present: S1 & S2 Extremities: normal temperature - Gastrointestinal General gastrointestinal: Present: soft, non-tender Rectal Exam: deferred - Genitourinary Female genitourinary: Present: deferred - Integumentary Integumentary: warm - Musculoskeletal Musculoskeletal: generalized weakness - Neurologic Neurologic: moves all extremities - Labs Lab Results: Laboratory Results - last 24 hr 04/02/19 04/03/19 04/03/19 08:20 05:47 05:47 WBC 9.1 6.2 RBC 4.66 4.41 Hgb 12.1 11.5 Hct 36.2 35.1 MCV 78 L 80 MCH 26 L 26 L MCHC 34 33 RDW 15.2 15.4 H Plt Count 16 L* D 5 L* Lymph % (Auto) 20.3 [employer] Sales Account Executive [place] % (Auto) 12.1 H [employer] Sales Account Executive Eos % (Auto) 0.8 [employer] Sales Account Executive Baso % (Auto) 0.3 [employer] Sales Account Executive Lymph # 1.8 [employer] Sales Account Executive [place] # 1.1 H [employer] Sales Account Executive Eos # 0.1 Radio Sales Account Executive Baso # 0.0 Radio Sales Account Executive Seg Neutrophils % 66.5 Radio Sales Account Executive Seg Neutrophils # 6.0 Radio Sales Account Executive Sodium 139 Potassium 3.7 Chloride 100.7 Carbon Dioxide 28 Anion Gap 14 BUN 9 Creatinine 0.6 L Estimated GFR > 60 BUN/Creatinine Ratio 15 Glucose 98 Calcium 9.1 Medications & Allergies - Medications Allergies/Adverse Reactions: Allergies No Known Allergies Allergy (Unverified 06/15/18 10:59) Home Medications: Home Medications Medication Instructions Recorded Confirmed Last Taken Type Prednisone [predniSONE 10 mg 10 mg PO .TAPER #1 tab.ds.pk 03/30/19 04/02/19 04/02/19 Rx (6-Day Pack, 21 Tabs)] Latanoprost 0.005% [Xalatan 0.005%] 1 drop OU HS 04/02/19 04/02/19 Unknown History Active Medications: Generic Name Dose Route Start Last Admin Trade Name Freq PRN Reason Stop Dose Admin Albuterol 2.5 mg 04/01/19 18:30 Proventil IH Q3HRT PRN Shortness Of Breath Folic Acid 1 mg 04/02/19 14:00 04/02/19 14:50 Folvite PO 1 mg QDAY HODAN Administration Immune Globulin 32 gm/ 320 mls @ 32 mls/hr 04/02/19 22:00 04/02/19 22:48 Miscellaneous Information IV 04/03/19 23:59 32 mls/hr Q24H HODAN Administration Immune Globulin 25 gm/ 250 mls @ 32 mls/hr 04/04/19 22:00 Miscellaneous Information IV 04/05/19 05:49 Q24H HODAN Pantoprazole Sodium 40 mg 04/02/19 10:00 04/02/19 09:33 Protonix PO 40 mg QDAY HODAN Administration Prednisone 60 mg 04/02/19 06:25 04/02/19 09:32 Deltasone PO Not Given QDAY HODAN Sodium Chloride 10 ml 04/01/19 22:00 04/02/19 22:49 Sodium Chloride Flush Syringe 10 Ml IV 10 ml BID HODAN Administration Sodium Chloride 10 ml 04/01/19 18:30 Sodium Chloride Flush Syringe 10 Ml IV PRN PRN LINE FLUSH
[2019-04-03] MEDS ORDERED: NACL 0.9% 500 ML 500 ML IV ONE (08:00)
[2019-04-03] MEDS: PROTONIX PO SCH (10:51)
[2019-04-03] MEDS: DELTASONE PO SCH (10:51)
[2019-04-03] MEDS: FOLVITE PO SCH (10:51)
[2019-04-03] MEDS: SODIUM CHLORIDE FLUSH SYRINGE 10 ML IV SCH ×2 (10:52→22:13)
[2019-04-03 11:29] LABS: Anisocytosis Few; Basophils % (Manual) 0 % (0.0-1.8); Platelet Estimate Appears Decreased; Total Cells Counted 100
[2019-04-03 13:35] LABS: Basophils % (Auto) 0.2 % (0.0-1.8); Eosinophils % (Auto) 0.4 % (0.0-4.3); Hematocrit 37.2 % (30.3-42.9); Hemoglobin 12.5 gm/dl (10.1-14.3); Lymphocytes # (Auto) 0.7 K/mm3 (1.2-5.4); Lymphocytes % (Auto) 9.8 % (13.4-35.0); Mean Corpuscular HGB Conc 34 % (30-34); Mean Corpuscular Volume 78 fl (79-97); Monocytes # (Auto) 0.4 K/mm3 (0.0-0.8); Monocytes % (Auto) 5.7 % (0.0-7.3); Red Blood Count 4.75 M/mm3 (3.65-5.03); Red Cell Distribution Width 15.5 % (13.2-15.2)
[2019-04-03 13:39] LABS: Platelet Count 8 K/mm3 (140-440)
[2019-04-03] MEDS ORDERED: NACL 0.9% 500 ML 500 ML ONE (13:50)
--- NOTE | 2019-04-03 15:54 | Progress Note ---
Assessment and Plan Assessment and plan: 53 YO Female with glaucoma, thrombocytopenia presents to ED for reevaluation. Pt seen and evaluated on 03/31/19 for thrombocytopenia. Pt discharged home with steroid therapy and outpatient platelet transfusion. Pt returns today at the request of her PCP for platelet transfusion. Pt transported to [facility] via private vehicle. Pt seen and evaluated in ED and foung to have Thrombocytopenia with platelet count of 7 without evidence of active bleeding. Pt denies fever, chills, CP, palpitations, joint pain, trauma, cough, leg swelling, abdominal pain, flank pain or recent ill contacts. Platelet transfusion and IVIG ordered in ED prior to my exam. Hematology service consulted in ED and recommend IVIG and platelet transfusion. No prior admission for review. PT admitted to [facility] for platelet transfusion as per Hematology recommendations. Severe thrombocytopenia, likely due to ITP - Patient was given IVIG, with no improvement in platelet count and transfuse platelets today - Continue steroid - Hematology oncology consult appreciated - Platelet this morning with 8 - Follow platelet - No active bleeding Dark discoloration in the buccal mucosa; likely due to low platelet count DVT prophylaxis - SCD Disposition - Continue IMCU care History Interval history: Patient was seen and evaluated this morning, patient didn't have any bleeding. Hospitalist Physical - Physical exam Narrative exam: Not in cardiopulmonary distress. The patient appeared well nourished and normally developed. Vital signs as documented. Head exam is unremarkable. Dusky discoloration in the bucca mucosa, likely due to petechiae. No scleral icterus . Neck is without jugular venous distension, thyromegaly, or carotid bruits. Lungs are clear to auscultation. Cardiac exam reveals regular rate and Rhythm. First and second heart sounds normal. No murmurs, rubs or gallops. Abdominal exam reveals normal bowel sounds, no masses, no organomegaly and no aortic enlargement. Extremities are nonedematous and both femoral and pedal pulses are normal. TELEPHONE SOLICITOR: Alert and oriented 3. No focal weakness. - Constitutional Vitals: Temp Pulse Resp BP Pulse Ox 98.9 F 93 H 26 H 141/86 97 04/03/19 12:00 04/03/19 08:40 04/03/19 08:40 04/03/19 08:40 04/03/19 08:40 General appearance: Present: no acute distress, well-nourished Results - Labs CBC & Chem 7: 04/03/19 13:20 04/03/19 05:47 Labs: Laboratory Last Values WBC 6.7 K/mm3 (4.5-11.0) 04/03/19 13:20 RBC 4.75 M/mm3 (3.65-5.03) 04/03/19 13:20 Hgb 12.5 gm/dl (10.1-14.3) 04/03/19 13:20 Hct 37.2 % (30.3-42.9) 04/03/19 13:20 MCV 78 fl (79-97) L 04/03/19 13:20 MCH 26 pg (28-32) L 04/03/19 13:20 MCHC 34 % (30-34) 04/03/19 13:20 RDW 15.5 % (13.2-15.2) H 04/03/19 13:20 Plt Count 8 K/mm3 (140-440) L* 04/03/19 13:20 Lymph % (Auto) 9.8 % (13.4-35.0) L 04/03/19 13:20 [place] % (Auto) 5.7 % (0.0-7.3) 04/03/19 13:20 Eos % (Auto) 0.4 % (0.0-4.3) 04/03/19 13:20 Baso % (Auto) 0.2 % (0.0-1.8) 04/03/19 13:20 Lymph # 0.7 K/mm3 (1.2-5.4) L 04/03/19 13:20 [place] # 0.4 K/mm3 (0.0-0.8) 04/03/19 13:20 Eos # 0.0 K/mm3 (0.0-0.4) 04/03/19 13:20 Baso # 0.0 K/mm3 (0.0-0.1) 04/03/19 13:20 Add Manual Diff Complete 04/03/19 05:47 Total Counted 100 04/03/19 05:47 Seg Neutrophils % 83.9 % (40.0-70.0) H 04/03/19 13:20 Seg Neuts % (Manual) 66.0 % (40.0-70.0) 04/03/19 05:47 0 % 04/03/19 05:47 23.0 % (13.4-35.0) 04/03/19 05:47 Reactive Lymphs % (Man) 0 % 04/03/19 05:47 10.0 % (0.0-7.3) H 04/03/19 05:47 1.0 % (0.0-4.3) 04/03/19 05:47 0 % (0.0-1.8) 04/03/19 05:47 0 % 04/03/19 05:47 0 % 04/03/19 05:47 0 % 04/03/19 05:47 0 % 04/03/19 05:47 Nucleated RBC % Not Reportable 04/03/19 05:47 Seg Neutrophils # 5.6 K/mm3 (1.8-7.7) 04/03/19 13:20 Seg Neutrophils # Man 4.1 K/mm3 (1.8-7.7) 04/03/19 05:47 Band Neutrophils # 0.0 K/mm3 04/03/19 05:47 1.4 K/mm3 (1.2-5.4) 04/03/19 05:47 Abs React Lymphs (Man) 0.0 K/mm3 04/03/19 05:47 0.6 K/mm3 (0.0-0.8) 04/03/19 05:47 0.1 K/mm3 (0.0-0.4) 04/03/19 05:47 0.0 K/mm3 (0.0-0.1) 04/03/19 05:47 0.0 K/mm3 04/03/19 05:47 0.0 K/mm3 04/03/19 05:47 0.0 K/mm3 04/03/19 05:47 Blast Cells # 0.0 K/mm3 04/03/19 05:47 Pathologist Review 04/03/19 05:47 Hypersegmented Neuts Not Reportable 04/03/19 05:47 Hyposegmented Neuts Not Reportable 04/03/19 05:47 Hypogranular Neuts Not Reportable 04/03/19 05:47 Not Reportable 04/03/19 05:47 Not Reportable 04/03/19 05:47 Not Reportable 04/03/19 05:47 Not Reportable 04/03/19 05:47 Not Reportable 04/03/19 05:47 Not Reportable 04/03/19 05:47 Appears decreased 04/03/19 05:47 Not Reportable 04/03/19 05:47 Plt Clumps, EDTA Not Reportable 04/03/19 05:47 Not Reportable 04/03/19 05:47 Not Reportable 04/03/19 05:47 Not Reportable 04/03/19 05:47 Plt Morphology Comment Not Reportable 04/03/19 05:47 RBC Morphology Not Reportable 04/03/19 05:47 Dimorphic RBCs Not Reportable 04/03/19 05:47 Not Reportable 04/03/19 05:47 Not Reportable 04/03/19 05:47 Not Reportable 04/03/19 05:47 Few 04/03/19 05:47 Not Reportable 04/03/19 05:47 Not Reportable 04/03/19 05:47 Not Reportable 04/03/19 05:47 Not Reportable 04/03/19 05:47 Not Reportable 04/03/19 05:47 Not Reportable 04/03/19 05:47 Not Reportable 04/03/19 05:47 Not Reportable 04/03/19 05:47 Not Reportable 04/03/19 05:47 Not Reportable 04/03/19 05:47 Not Reportable 04/03/19 05:47 Not Reportable 04/03/19 05:47 Not Reportable 04/03/19 05:47 Not Reportable 04/03/19 05:47 Not Reportable 04/03/19 05:47 Acanthocytes (Spur) Not Reportable 04/03/19 05:47 Rouleaux Not Reportable 04/03/19 05:47 Not Reportable 04/03/19 05:47 Not Reportable 04/03/19 05:47 Not Reportable 04/03/19 05:47 Not Reportable 04/03/19 05:47 Hem Pathologist Commnt Sent to pathology 04/03/19 05:47 PT 12.7 Sec. (12.2-14.9) 04/01/19 14:16 INR 0.98 (0.87-1.13) 04/01/19 14:16 APTT 24.9 Sec. (24.2-36.6) 04/01/19 14:16 Sodium 139 mmol/L (137-145) 04/03/19 05:47 Potassium 3.7 mmol/L (3.6-5.0) 04/03/19 05:47 Chloride 100.7 mmol/L (98-107) 04/03/19 05:47 Carbon Dioxide 28 mmol/L (22-30) 04/03/19 05:47 14 mmol/L 04/03/19 05:47 BUN 9 mg/dL (7-17) 04/03/19 05:47 0.6 mg/dL (0.7-1.2) L 04/03/19 05:47 Estimated GFR > 60 ml/min 04/03/19 05:47 15 % 04/03/19 05:47 Glucose 98 mg/dL (65-100) 04/03/19 05:47 Calcium 9.1 mg/dL (8.4-10.2) 04/03/19 05:47 Iron 53 ug/dL (37-170) 04/02/19 04:44 TIBC 259 mcg/dL (250-450) 04/02/19 04:44 63.0 ng/mL (13.0-400.0) 04/02/19 04:44 0.30 mg/dL (0.1-1.2) 04/02/19 04:44 AST 36 units/L (5-40) 04/02/19 04:44 ALT 41 units/L (7-56) 04/02/19 04:44 136 units/L (35-129) H 04/02/19 04:44 7.1 g/dL (6.3-8.2) 04/02/19 04:44 3.3 g/dL (3.9-5) L 04/02/19 04:44 0.9 % 04/02/19 04:44 Vitamin B12 575.2 pg/mL (211-911) 04/02/19 04:44 6.81 ng/mL (7.3-26.0) L 04/02/19 04:44 Blood Type O POSITIVE 04/01/19 14:20 Antibody Screen Negative 04/01/19 14:20 Active Medications - Current Medications Current Medications: Generic Name Dose Route Start Last Admin Trade Name Satyaq PRN Reason Stop Dose Admin Albuterol 2.5 mg 04/01/19 18:30 Proventil IH Q3HRT PRN Shortness Of Breath Folic Acid 1 mg 04/02/19 14:00 04/03/19 10:51 Folvite PO 1 mg QDAY HODAN Administration Immune Globulin 32 gm/ 320 mls @ 32 mls/hr 04/02/19 22:00 04/02/19 22:48 Miscellaneous Information IV 04/03/19 23:59 32 mls/hr Q24H HODAN Administration Immune Globulin 25 gm/ 250 mls @ 32 mls/hr 04/04/19 22:00 Miscellaneous Information IV 04/05/19 05:49 Q24H HODAN Pantoprazole Sodium 40 mg 04/02/19 10:00 04/03/19 10:51 Protonix PO 40 mg QDAY HODAN Administration Prednisone 60 mg 04/02/19 06:25 04/03/19 10:51 Deltasone PO 60 mg QDAY HODAN Administration Sodium Chloride 10 ml 04/01/19 22:00 04/03/19 10:52 Sodium Chloride Flush Syringe 10 Ml IV 10 ml BID HODAN Administration Sodium Chloride 10 ml 04/01/19 18:30 Sodium Chloride Flush Syringe 10 Ml IV PRN PRN LINE FLUSH
[2019-04-03] MEDS: PRIVIGEN IV SCH (22:12)
[2019-04-03] MEDS: VIAFLEX EMPTY CONTAINER IV SCH (22:12)
[2019-04-04 05:20] LABS: Basophils # (Auto) 0.1 K/mm3 (0.0-0.1); Eosinophils % (Auto) 0.1 % (0.0-4.3); Hematocrit 34.8 % (30.3-42.9); Hemoglobin 11.8 gm/dl (10.1-14.3); Lymphocytes # (Auto) 1.1 K/mm3 (1.2-5.4); Mean Corpuscular HGB Conc 34 % (30-34); Mean Corpuscular Volume 78 fl (79-97); Monocytes # (Auto) 0.9 K/mm3 (0.0-0.8); Monocytes % (Auto) 13.1 % (0.0-7.3); Red Blood Count 4.47 M/mm3 (3.65-5.03); Red Cell Distribution Width 15.2 % (13.2-15.2)
[2019-04-04 05:27] LABS: Platelet Count 9 K/mm3 (140-440)
--- NOTE | 2019-04-04 07:31 | Hem/Onc Progress Note ---
Assessment and Plan 1. 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 The etiology is not clear, usually they have viral etiology preceding, or medication. 2. Oral ecchymosis secondary to low platelets 3. History of glaucoma. 4. IVIG, smear evaluation, deficiency investigation. 04/04 - h/o nose bleed low folate - replace plt still low - ct ivig pt on PPI and steroids pharmacy called - shortage of ivig path called - low plt no other wbc abnormality s/p plt transfusion if no improvement - splenectomy vs rituxan - vs time for steroids to act? 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 3r line Rituxan an option - d/w pt reg transfer as we cannot give rituxan here - Patient Problems (1) Acute ITP Current Visit: Yes Status: Acute Subjective Date of service: 04/04/19 Principal diagnosis: ITP Interval history: oral bleeding improving Objective - Constitutional Vitals: Last Vital Signs Temp 98.4 F 04/04/19 04:00 Pulse 56 L 04/04/19 02:30 Resp 18 04/04/19 02:30 BP 137/78 04/04/19 02:30 Pulse Ox 95 04/04/19 02:30 Pain Intensity (0-10): denies any pain General appearance: no acute distress Performance status: 3-limited selfcare - EENT Eyes: EOM intact ENT: hearing intact Lymph node exam: negative cervical - Neck Neck: normal ROM - Respiratory Respiratory effort: Positive: normal Respiratory: bilateral: CTA - Cardiovascular Heart Sounds: Present: S1 & S2 Extremities: normal temperature - Gastrointestinal General gastrointestinal: Present: soft, non-tender Rectal Exam: deferred - Genitourinary Female genitourinary: Present: deferred - Integumentary Integumentary: warm - Musculoskeletal Musculoskeletal: strength equal bilaterally - Neurologic Neurologic: moves all extremities - Labs Lab Results: Laboratory Results - last 24 hr 04/01/19 04/03/19 04/03/19 14:20 05:47 13:20 WBC 6.2 6.7 RBC 4.41 4.75 Hgb 11.5 12.5 Hct 35.1 37.2 MCV 80 78 L MCH 26 L 26 L MCHC 33 34 RDW 15.4 H 15.5 H Plt Count 5 L* 8 L* Lymph % (Auto) Spar Finisher 9.8 L Blanco % (Auto) Spar Finisher 5.7 Eos % (Auto) Spar Finisher 0.4 Baso % (Auto) Spar Finisher 0.2 Lymph # Spar Finisher 0.7 L Blanco # Spar Finisher 0.4 Eos # Spar Finisher 0.0 Baso # Spar Finisher 0.0 Add Manual Diff Complete Total Counted 100 Seg Neutrophils % Spar Finisher 83.9 H Seg Neuts % (Manual) 66.0 Band Neutrophils % 0 Lymphocytes % (Manual) 23.0 Reactive Lymphs % (Man) 0 Monocytes % (Manual) 10.0 H Eosinophils % (Manual) 1.0 Basophils % (Manual) 0 Metamyelocytes % 0 Myelocytes % 0 Promyelocytes % 0 Blast Cells % 0 Nucleated RBC % Not Reportable Seg Neutrophils # Spar Finisher 5.6 Seg Neutrophils # Man 4.1 Band Neutrophils # 0.0 Lymphocytes # (Manual) 1.4 Abs React Lymphs (Man) 0.0 Monocytes # (Manual) 0.6 Eosinophils # (Manual) 0.1 Basophils # (Manual) 0.0 Metamyelocytes # 0.0 Myelocytes # 0.0 Promyelocytes # 0.0 Blast Cells # 0.0 Pathologist Review Hypersegmented Neuts Not Reportable Hyposegmented Neuts Not Reportable Hypogranular Neuts Not Reportable Smudge Cells Not Reportable Toxic Granulation Not Reportable Toxic Vacuolation Not Reportable Dohle Bodies Not Reportable Pelger-Huet Anomaly Not Reportable [place] Rods Not Reportable Platelet Estimate Appears decreased Clumped Platelets Not Reportable Plt Clumps, EDTA Not Reportable Large Platelets Not Reportable Giant Platelets Not Reportable Platelet Satelliting Not Reportable Plt Morphology Comment Not Reportable RBC Morphology Not Reportable Dimorphic RBCs Not Reportable Polychromasia Not Reportable Hypochromasia Not Reportable Poikilocytosis Not Reportable Anisocytosis Few Microcytosis Not Reportable Macrocytosis Not Reportable Spherocytes Not Reportable Pappenheimer Bodies Not Reportable Sickle Cells Not Reportable Target Cells Not Reportable Tear Drop Cells Not Reportable Ovalocytes Not Reportable Helmet Cells Not Reportable Li-[place] Bodies Not Reportable [place] Rings Not Reportable Domonique Cells Not Reportable Bite Cells Not Reportable Crenated Cell Not Reportable Elliptocytes Not Reportable Acanthocytes (Spur) Not Reportable Rouleaux Not Reportable Hemoglobin C Crystals Not Reportable Schistocytes Not Reportable Malaria parasites Not Reportable Sanya Bodies Not Reportable Hem Pathologist Commnt Sent to pathology Blood Type O POSITIVE Antibody Screen Negative 04/04/19 04:53 WBC 7.1 RBC 4.47 Hgb 11.8 Hct 34.8 MCV 78 L MCH 27 L MCHC 34 RDW 15.2 Plt Count 9 L* Lymph % (Auto) 16.0 Blanco % (Auto) 13.1 H Eos % (Auto) 0.1 Baso % (Auto) 1.0 Lymph # 1.1 L Blanco # 0.9 H Eos # 0.0 Baso # 0.1 Add Manual Diff Total Counted Seg Neutrophils % 69.8 Seg Neuts % (Manual) Band Neutrophils % Lymphocytes % (Manual) Reactive Lymphs % (Man) Monocytes % (Manual) Eosinophils % (Manual) Basophils % (Manual) Metamyelocytes % Myelocytes % Promyelocytes % Blast Cells % Nucleated RBC % Seg Neutrophils # 4.9 Seg Neutrophils # Man Band Neutrophils # Lymphocytes # (Manual) Abs React Lymphs (Man) Monocytes # (Manual) Eosinophils # (Manual) Basophils # (Manual) Metamyelocytes # Myelocytes # Promyelocytes # Blast Cells # Pathologist Review Hypersegmented Neuts Hyposegmented Neuts Hypogranular Neuts Smudge Cells Toxic Granulation Toxic Vacuolation Dohle Bodies Pelger-Huet Anomaly [place] Rods Platelet Estimate Clumped Platelets Plt Clumps, EDTA Large Platelets Giant Platelets Platelet Satelliting Plt Morphology Comment RBC Morphology Dimorphic RBCs Polychromasia Hypochromasia Poikilocytosis Anisocytosis Microcytosis Macrocytosis Spherocytes Pappenheimer Bodies Sickle Cells Target Cells Tear Drop Cells Ovalocytes Helmet Cells Li-[place] Bodies [place] Rings Domonique Cells Bite Cells Crenated Cell Elliptocytes Acanthocytes (Spur) Rouleaux Hemoglobin C Crystals Schistocytes Malaria parasites Sanya Bodies Hem Pathologist Commnt Blood Type Antibody Screen Medications & Allergies - Medications Allergies/Adverse Reactions: Allergies No Known Allergies Allergy (Unverified 06/15/18 10:59) Home Medications: Home Medications Medication Instructions Recorded Confirmed Last Taken Type Prednisone [predniSONE 10 mg 10 mg PO .TAPER #1 tab.ds.pk 03/30/19 04/02/19 04/02/19 Rx (6-Day Pack, 21 Tabs)] Latanoprost 0.005% [Xalatan 0.005%] 1 drop OU HS 04/02/19 04/02/19 Unknown History Active Medications: Generic Name Dose Route Start Last Admin Trade Name Satyaq PRN Reason Stop Dose Admin Albuterol 2.5 mg 04/01/19 18:30 Proventil IH Q3HRT PRN Shortness Of Breath Folic Acid 1 mg 04/02/19 14:00 04/03/19 10:51 Folvite PO 1 mg QDAY HODAN Administration Immune Globulin 25 gm/ 250 mls @ 32 mls/hr 04/04/19 22:00 Miscellaneous Information IV 04/05/19 05:49 Q24H HODAN Pantoprazole Sodium 40 mg 04/02/19 10:00 04/03/19 10:51 Protonix PO 40 mg QDAY HODAN Administration Prednisone 60 mg 04/02/19 06:25 04/03/19 10:51 Deltasone PO 60 mg QDAY HODAN Administration Sodium Chloride 10 ml 04/01/19 22:00 04/03/19 22:13 Sodium Chloride Flush Syringe 10 Ml IV 10 ml BID HODAN Administration Sodium Chloride 10 ml 04/01/19 18:30 Sodium Chloride Flush Syringe 10 Ml IV PRN PRN LINE FLUSH
[2019-04-04] MEDS: FOLVITE PO SCH (10:16)
[2019-04-04] MEDS: PEPCID PO SCH ×2 (10:16→22:21)
[2019-04-04] MEDS: DELTASONE PO SCH (10:16)
[2019-04-04] MEDS: SODIUM CHLORIDE FLUSH SYRINGE 10 ML IV SCH ×2 (10:17→22:21)
[2019-04-04] MEDS: APRESOLINE IV PRN (16:45)
--- NOTE | 2019-04-04 17:28 | Progress Note ---
Assessment and Plan Assessment and plan: 53 YO Female with glaucoma, thrombocytopenia presents to ED for reevaluation. Pt seen and evaluated on 03/31/19 for thrombocytopenia. Pt discharged home with steroid therapy and outpatient platelet transfusion. Pt returns today at the request of her PCP for platelet transfusion. Pt transported to [facility] via private vehicle. Pt seen and evaluated in ED and foung to have Thrombocytopenia with platelet count of 7 without evidence of active bleeding. Pt denies fever, chills, CP, palpitations, joint pain, trauma, cough, leg swelling, abdominal pain, flank pain or recent ill contacts. Platelet transfusion and IVIG ordered in ED prior to my exam. Hematology service consulted in ED and recommend IVIG and platelet transfusion. No prior admission for review. PT admitted to IMCU for platelet transfusion as per Hematology recommendations. Severe thrombocytopenia, likely due to ITP - Patient was given IVIG, with no improvement in platelet count and transfused platelets yesterday - patient was given Anti-D today, if no improvement, possible referral for rituximab treatment - Continue steroid - Hematology oncology consult appreciated - Platelet this morning with 8 - Follow platelet - No active bleeding Dark discoloration in the buccal mucosa; likely due to low platelet count DVT prophylaxis - SCD Disposition - Continue IMCU care History Interval history: Patient was seen and evaluated this morning, patient didn't have any bleeding. No complaints. Hospitalist Physical - Physical exam Narrative exam: Not in cardiopulmonary distress. The patient appeared well nourished and normally developed. Vital signs as documented. Head exam is unremarkable. Dusky discoloration in the bucca mucosa, likely due to petechiae. No scleral icterus . Neck is without jugular venous distension, thyromegaly, or carotid bruits. Lungs are clear to auscultation. Cardiac exam reveals regular rate and Rhythm. First and second heart sounds normal. No murmurs, rubs or gallops. Abdominal exam reveals normal bowel sounds, no masses, no organomegaly and no aortic enlargement. Extremities are nonedematous and both femoral and pedal pulses are normal. [employer] MAIN[employer] DEVELOPER: Alert and oriented 3. No focal weakness. - Constitutional Vitals: Temp Pulse Resp BP Pulse Ox 97.9 F 98 H 14 174/92 96 04/04/19 12:00 04/04/19 16:45 04/04/19 16:00 04/04/19 16:45 04/04/19 16:00 General appearance: Present: no acute distress, well-nourished Results - Labs CBC & Chem 7: 04/04/19 04:53 04/03/19 05:47 Labs: Laboratory Last Values WBC 7.1 K/mm3 (4.5-11.0) 04/04/19 04:53 RBC 4.47 M/mm3 (3.65-5.03) 04/04/19 04:53 Hgb 11.8 gm/dl (10.1-14.3) 04/04/19 04:53 Hct 34.8 % (30.3-42.9) 04/04/19 04:53 MCV 78 fl (79-97) L 04/04/19 04:53 MCH 27 pg (28-32) L 04/04/19 04:53 MCHC 34 % (30-34) 04/04/19 04:53 RDW 15.2 % (13.2-15.2) 04/04/19 04:53 Plt Count 9 K/mm3 (140-440) L* 04/04/19 04:53 Lymph % (Auto) 16.0 % (13.4-35.0) 04/04/19 04:53 [place] % (Auto) 13.1 % (0.0-7.3) H 04/04/19 04:53 Eos % (Auto) 0.1 % (0.0-4.3) 04/04/19 04:53 Baso % (Auto) 1.0 % (0.0-1.8) 04/04/19 04:53 Lymph # 1.1 K/mm3 (1.2-5.4) L 04/04/19 04:53 [place] # 0.9 K/mm3 (0.0-0.8) H 04/04/19 04:53 Eos # 0.0 K/mm3 (0.0-0.4) 04/04/19 04:53 Baso # 0.1 K/mm3 (0.0-0.1) 04/04/19 04:53 Add Manual Diff Complete 04/03/19 05:47 Total Counted 100 04/03/19 05:47 Seg Neutrophils % 69.8 % (40.0-70.0) 04/04/19 04:53 Seg Neuts % (Manual) 66.0 % (40.0-70.0) 04/03/19 05:47 0 % 04/03/19 05:47 23.0 % (13.4-35.0) 04/03/19 05:47 Reactive Lymphs % (Man) 0 % 04/03/19 05:47 10.0 % (0.0-7.3) H 04/03/19 05:47 1.0 % (0.0-4.3) 04/03/19 05:47 0 % (0.0-1.8) 04/03/19 05:47 0 % 04/03/19 05:47 0 % 04/03/19 05:47 0 % 04/03/19 05:47 0 % 04/03/19 05:47 Nucleated RBC % Not Reportable 04/03/19 05:47 Seg Neutrophils # 4.9 K/mm3 (1.8-7.7) 04/04/19 04:53 Seg Neutrophils # Man 4.1 K/mm3 (1.8-7.7) 04/03/19 05:47 Band Neutrophils # 0.0 K/mm3 04/03/19 05:47 1.4 K/mm3 (1.2-5.4) 04/03/19 05:47 Abs React Lymphs (Man) 0.0 K/mm3 04/03/19 05:47 0.6 K/mm3 (0.0-0.8) 04/03/19 05:47 0.1 K/mm3 (0.0-0.4) 04/03/19 05:47 0.0 K/mm3 (0.0-0.1) 04/03/19 05:47 0.0 K/mm3 04/03/19 05:47 0.0 K/mm3 04/03/19 05:47 0.0 K/mm3 04/03/19 05:47 Blast Cells # 0.0 K/mm3 04/03/19 05:47 Pathologist Review 04/03/19 05:47 Hypersegmented Neuts Not Reportable 04/03/19 05:47 Hyposegmented Neuts Not Reportable 04/03/19 05:47 Hypogranular Neuts Not Reportable 04/03/19 05:47 Not Reportable 04/03/19 05:47 Not Reportable 04/03/19 05:47 Not Reportable 04/03/19 05:47 Not Reportable 04/03/19 05:47 Not Reportable 04/03/19 05:47 Not Reportable 04/03/19 05:47 Appears decreased 04/03/19 05:47 Not Reportable 04/03/19 05:47 Plt Clumps, EDTA Not Reportable 04/03/19 05:47 Not Reportable 04/03/19 05:47 Not Reportable 04/03/19 05:47 Not Reportable 04/03/19 05:47 Plt Morphology Comment Not Reportable 04/03/19 05:47 RBC Morphology Not Reportable 04/03/19 05:47 Dimorphic RBCs Not Reportable 04/03/19 05:47 Not Reportable 04/03/19 05:47 Not Reportable 04/03/19 05:47 Not Reportable 04/03/19 05:47 Few 04/03/19 05:47 Not Reportable 04/03/19 05:47 Not Reportable 04/03/19 05:47 Not Reportable 04/03/19 05:47 Not Reportable 04/03/19 05:47 Not Reportable 04/03/19 05:47 Not Reportable 04/03/19 05:47 Not Reportable 04/03/19 05:47 Not Reportable 04/03/19 05:47 Not Reportable 04/03/19 05:47 Not Reportable 04/03/19 05:47 Not Reportable 04/03/19 05:47 Not Reportable 04/03/19 05:47 Not Reportable 04/03/19 05:47 Not Reportable 04/03/19 05:47 Not Reportable 04/03/19 05:47 Acanthocytes (Spur) Not Reportable 04/03/19 05:47 Rouleaux Not Reportable 04/03/19 05:47 Not Reportable 04/03/19 05:47 Not Reportable 04/03/19 05:47 Not Reportable 04/03/19 05:47 Not Reportable 04/03/19 05:47 Hem Pathologist Commnt Sent to pathology 04/03/19 05:47 PT 12.7 Sec. (12.2-14.9) 04/01/19 14:16 INR 0.98 (0.87-1.13) 04/01/19 14:16 APTT 24.9 Sec. (24.2-36.6) 04/01/19 14:16 Sodium 139 mmol/L (137-145) 04/03/19 05:47 Potassium 3.7 mmol/L (3.6-5.0) 04/03/19 05:47 Chloride 100.7 mmol/L (98-107) 04/03/19 05:47 Carbon Dioxide 28 mmol/L (22-30) 04/03/19 05:47 14 mmol/L 04/03/19 05:47 BUN 9 mg/dL (7-17) 04/03/19 05:47 0.6 mg/dL (0.7-1.2) L 04/03/19 05:47 Estimated GFR > 60 ml/min 04/03/19 05:47 15 % 04/03/19 05:47 Glucose 98 mg/dL (65-100) 04/03/19 05:47 Calcium 9.1 mg/dL (8.4-10.2) 04/03/19 05:47 Iron 53 ug/dL (37-170) 04/02/19 04:44 TIBC 259 mcg/dL (250-450) 04/02/19 04:44 63.0 ng/mL (13.0-400.0) 04/02/19 04:44 0.30 mg/dL (0.1-1.2) 04/02/19 04:44 AST 36 units/L (5-40) 04/02/19 04:44 ALT 41 units/L (7-56) 04/02/19 04:44 136 units/L (35-129) H 04/02/19 04:44 7.1 g/dL (6.3-8.2) 04/02/19 04:44 3.3 g/dL (3.9-5) L 04/02/19 04:44 0.9 % 04/02/19 04:44 Vitamin B12 575.2 pg/mL (211-911) 04/02/19 04:44 6.81 ng/mL (7.3-26.0) L 04/02/19 04:44 Blood Type O POSITIVE 04/01/19 14:20 Antibody Screen Negative 04/01/19 14:20 Active Medications - Current Medications Current Medications: Generic Name Dose Route Start Last Admin Trade Name Freq PRN Reason Stop Dose Admin Albuterol 2.5 mg 04/01/19 18:30 Proventil IH Q3HRT PRN Shortness Of Breath Famotidine 20 mg 04/04/19 10:00 04/04/19 10:16 Pepcid PO 20 mg BID HODAN Administration Folic Acid 1 mg 04/02/19 14:00 04/04/19 10:16 Folvite PO 1 mg QDAY HDOAN Administration Hydralazine HCl 10 mg 04/04/19 16:12 04/04/19 16:45 Apresoline IV 10 mg Q4HR PRN Administration SBP>160 Immune Globulin 25 gm/ 250 mls @ 32 mls/hr 04/04/19 22:00 Miscellaneous Information IV 04/05/19 05:49 Q24H HODAN Prednisone 60 mg 04/02/19 06:25 04/04/19 10:16 Deltasone PO 60 mg QDAY HODAN Administration Sodium Chloride 10 ml 04/01/19 22:00 04/04/19 10:17 Sodium Chloride Flush Syringe 10 Ml IV 10 ml BID HODAN Administration Sodium Chloride 10 ml 04/01/19 18:30 Sodium Chloride Flush Syringe 10 Ml IV PRN PRN LINE FLUSH
[2019-04-04] MEDS ORDERED: PRIVIGEN IV SCH (22:00)
[2019-04-04] MEDS ORDERED: VIAFLEX EMPTY CONTAINER IV SCH (22:00)
[2019-04-04] MEDS: COLACE PO SCH (22:21)
[2019-04-05] MEDS: APRESOLINE IV PRN (05:42)
[2019-04-05] MEDS ORDERED: IBUPROFEN PO PRN (06:24)
[2019-04-05 06:38] LABS: Basophils % (Auto) 0.1 % (0.0-1.8); Eosinophils % (Auto) 0.2 % (0.0-4.3); Hematocrit 36.1 % (30.3-42.9); Mean Corpuscular HGB Conc 33 % (30-34); Mean Corpuscular Volume 78 fl (79-97); Monocytes # (Auto) 0.9 K/mm3 (0.0-0.8); Monocytes % (Auto) 12.1 % (0.0-7.3); Red Cell Distribution Width 15.3 % (13.2-15.2)
[2019-04-05 07:04] LABS: Platelet Count 6 K/mm3 (140-440)
[2019-04-05] MEDS: PEPCID PO SCH ×2 (10:24→21:18)
[2019-04-05] MEDS: FOLVITE PO SCH (10:24)
[2019-04-05] MEDS: COLACE PO SCH ×2 (10:24→21:17)
[2019-04-05] MEDS: LOPRESSOR PO SCH ×2 (10:24→21:18)
[2019-04-05] MEDS: DELTASONE PO SCH ×2 (10:24→17:02)
[2019-04-05] MEDS: MORPHINE IV PRN ×2 (10:25→17:06)
--- NOTE | 2019-04-05 11:10 | Discharge Summary ---
Providers - Providers Date of Admission: 04/01/19 18:30 Date of discharge: 04/06/19 Attending physician: RAJ FARRELL MD 04/01/19 18:19 Consult to Physician [CONS] Urgent Comment: Consulting Provider: ARYAN MILLER Physician Instructions: Reason For Exam: ITP Primary care physician: JULIO C CHANG Hospitalization Reason for admission: ITP, severe thrombocytopenia Condition: Fair Hospital course: 53 YO Female with glaucoma, thrombocytopenia presents to ED for reevaluation. Pt seen and evaluated on 03/31/19 for thrombocytopenia. Pt discharged home with steroid therapy and outpatient platelet transfusion. Pt returns today at the request of her PCP for platelet transfusion. Pt transported to [facility] via private vehicle. Pt seen and evaluated in ED and foung to have Thrombocytopenia with platelet count of 7 without evidence of active bleeding. Pt denies fever, chills, CP, palpitations, joint pain, trauma, cough, leg swelling, abdominal pain, flank pain or recent ill contacts. Platelet transfusion and IVIG ordered in ED prior to my exam. Hematology service consulted in ED and recommend IVIG a nd platelet transfusion. No prior admission for review. PT admitted to [facility] for platelet transfusion as per Hematology recommendations. Patient admitted to the floor she was started initially with IVIG, and steroids with no improvement in platelet count and patient was transfused a unit of platelet despite that the platelet count is unchanged. Anti-D was given and no change in platelet count. Discussed with Dr. Miller and he wants to transfer the patient to [place] for rituximab treatment. Patient's accepted and will be transferred there. Patient is hemodynamically stable, no active bleeding. H&H stable. Patient has hypertension and she is on metoprolol and controlled. No other medical issues. Disposition: [id number] Time spent for discharge: 32 minutes - Discharge Diagnoses (1) Acute ITP Status: Acute (2) Epistaxis Status: Acute Core Measure Documentation - Palliative Care Palliative Care/ Comfort Measures: Not Applicable - Core Measures Any of the following diagnoses?: none Exam - Physical Exam Narrative exam: Not in cardiopulmonary distress. The patient appeared well nourished and normally developed. Vital signs as documented. Head exam is unremarkable. No scleral icterus . Neck is without jugular venous distension, thyromegaly, or carotid bruits. Lungs are clear to auscultation. Cardiac exam reveals regular rate and Rhythm. First and second heart sounds normal. No murmurs, rubs or gallops. Abdominal exam reveals normal bowel sounds, no masses, no organomegaly and no aortic enlargement. Extremities are nonedematous and both femoral and pedal pulses are normal. [employer]KER: Alert and oriented 3. No focal weakness. - Constitutional Vitals: Temp Pulse Resp BP Pulse Ox 98.8 F 102 H 23 166/85 100 04/05/19 03:37 04/05/19 10:24 04/05/19 06:01 04/05/19 10:24 04/05/19 06:01 Plan Activity: no restrictions Weight Bearing Status: Full Weight Bearing Diet: low salt Follow up with: JULIO C CHANG MD [Primary Care Provider] - 3-5 Days
[2019-04-05] MEDS: SODIUM CHLORIDE FLUSH SYRINGE 10 ML IV SCH ×2 (12:02→21:18)
--- NOTE | 2019-04-05 17:13 | Progress Note ---
Assessment and Plan Assessment and plan: 53 YO Female with glaucoma, thrombocytopenia presents to ED for reevaluation. Pt seen and evaluated on 03/31/19 for thrombocytopenia. Pt discharged home with steroid therapy and outpatient platelet transfusion. Pt returns today at the request of her PCP for platelet transfusion. Pt transported to [facility] via private vehicle. Pt seen and evaluated in ED and foung to have Thrombocytopenia with platelet count of 7 without evidence of active bleeding. Pt denies fever, chills, CP, palpitations, joint pain, trauma, cough, leg swelling, abdominal pain, flank pain or recent ill contacts. Platelet transfusion and IVIG ordered in ED prior to my exam. Hematology service consulted in ED and recommend IVIG and platelet transfusion. No prior admission for review. PT admitted to [facility] for platelet transfusion as per Hematology recommendations. 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 - Patient Problems (1) Acute ITP Current Visit: Yes Status: Acute (2) Epistaxis Current Visit: No Status: Acute History Interval history: Patient was seen and evaluated this morning, patient didn't have any bleeding. complaining headache and palpitations. Hospitalist Physical - Physical exam Narrative exam: Not in cardiopulmonary distress. The patient appeared well nourished and normally developed. Vital signs as documented. Head exam is unremarkable. Dusky discoloration in the bucca mucosa, likely due to petechiae. No scleral icterus . Neck is without jugular venous distension, thyromegaly, or carotid bruits. Lungs are clear to auscultation. Cardiac exam reveals regular rate and Rhythm. First and second heart sounds normal. No murmurs, rubs or gallops. Abdominal exam reveals normal bowel sounds, no masses, no organomegaly and no aortic enlargement. Extremities are nonedematous and both femoral and pedal pulses are normal. ONLINE CONTENT COORDINATOR: Alert and oriented 3. No focal weakness. - Constitutional Vitals: Temp Pulse Resp BP Pulse Ox 97.7 F 75 18 171/93 97 04/05/19 12:00 04/05/19 14:00 04/05/19 14:00 04/05/19 14:00 04/05/19 14:00 General appearance: Present: no acute distress, well-nourished Results - Labs CBC & Chem 7: 04/05/19 04:55 04/03/19 05:47 Labs: Laboratory Last Values WBC 7.5 K/mm3 (4.5-11.0) 04/05/19 04:55 RBC 4.60 M/mm3 (3.65-5.03) 04/05/19 04:55 Hgb 12.0 gm/dl (10.1-14.3) 04/05/19 04:55 Hct 36.1 % (30.3-42.9) 04/05/19 04:55 MCV 78 fl (79-97) L 04/05/19 04:55 MCH 26 pg (28-32) L 04/05/19 04:55 MCHC 33 % (30-34) 04/05/19 04:55 RDW 15.3 % (13.2-15.2) H 04/05/19 04:55 Plt Count 6 K/mm3 (140-440) L* 04/05/19 04:55 Lymph % (Auto) 13.0 % (13.4-35.0) L 04/05/19 04:55 [place] % (Auto) 12.1 % (0.0-7.3) H 04/05/19 04:55 Eos % (Auto) 0.2 % (0.0-4.3) 04/05/19 04:55 Baso % (Auto) 0.1 % (0.0-1.8) 04/05/19 04:55 Lymph # 1.0 K/mm3 (1.2-5.4) L 04/05/19 04:55 [place] # 0.9 K/mm3 (0.0-0.8) H 04/05/19 04:55 Eos # 0.0 K/mm3 (0.0-0.4) 04/05/19 04:55 Baso # 0.0 K/mm3 (0.0-0.1) 04/05/19 04:55 Add Manual Diff Complete 04/03/19 05:47 Total Counted 100 04/03/19 05:47 Seg Neutrophils % 74.6 % (40.0-70.0) H 04/05/19 04:55 Seg Neuts % (Manual) 66.0 % (40.0-70.0) 04/03/19 05:47 0 % 04/03/19 05:47 23.0 % (13.4-35.0) 04/03/19 05:47 Reactive Lymphs % (Man) 0 % 04/03/19 05:47 10.0 % (0.0-7.3) H 04/03/19 05:47 1.0 % (0.0-4.3) 04/03/19 05:47 0 % (0.0-1.8) 04/03/19 05:47 0 % 04/03/19 05:47 0 % 04/03/19 05:47 0 % 04/03/19 05:47 0 % 04/03/19 05:47 Nucleated RBC % Not Reportable 04/03/19 05:47 Seg Neutrophils # 5.6 K/mm3 (1.8-7.7) 04/05/19 04:55 Seg Neutrophils # Man 4.1 K/mm3 (1.8-7.7) 04/03/19 05:47 Band Neutrophils # 0.0 K/mm3 04/03/19 05:47 1.4 K/mm3 (1.2-5.4) 04/03/19 05:47 Abs React Lymphs (Man) 0.0 K/mm3 04/03/19 05:47 0.6 K/mm3 (0.0-0.8) 04/03/19 05:47 0.1 K/mm3 (0.0-0.4) 04/03/19 05:47 0.0 K/mm3 (0.0-0.1) 04/03/19 05:47 0.0 K/mm3 04/03/19 05:47 0.0 K/mm3 04/03/19 05:47 0.0 K/mm3 04/03/19 05:47 Blast Cells # 0.0 K/mm3 04/03/19 05:47 Pathologist Review 04/03/19 05:47 Hypersegmented Neuts Not Reportable 04/03/19 05:47 Hyposegmented Neuts Not Reportable 04/03/19 05:47 Hypogranular Neuts Not Reportable 04/03/19 05:47 Not Reportable 04/03/19 05:47 Not Reportable 04/03/19 05:47 Not Reportable 04/03/19 05:47 Not Reportable 04/03/19 05:47 Not Reportable 04/03/19 05:47 Not Reportable 04/03/19 05:47 Appears decreased 04/03/19 05:47 Not Reportable 04/03/19 05:47 Plt Clumps, EDTA Not Reportable 04/03/19 05:47 Not Reportable 04/03/19 05:47 Not Reportable 04/03/19 05:47 Not Reportable 04/03/19 05:47 Plt Morphology Comment Not Reportable 04/03/19 05:47 RBC Morphology Not Reportable 04/03/19 05:47 Dimorphic RBCs Not Reportable 04/03/19 05:47 Not Reportable 04/03/19 05:47 Not Reportable 04/03/19 05:47 Not Reportable 04/03/19 05:47 Few 04/03/19 05:47 Not Reportable 04/03/19 05:47 Not Reportable 04/03/19 05:47 Not Reportable 04/03/19 05:47 Not Reportable 04/03/19 05:47 Not Reportable 04/03/19 05:47 Not Reportable 04/03/19 05:47 Not Reportable 04/03/19 05:47 Not Reportable 04/03/19 05:47 Not Reportable 04/03/19 05:47 Not Reportable 04/03/19 05:47 Not Reportable 04/03/19 05:47 Not Reportable 04/03/19 05:47 Not Reportable 04/03/19 05:47 Not Reportable 04/03/19 05:47 Not Reportable 04/03/19 05:47 Acanthocytes (Spur) Not Reportable 04/03/19 05:47 Rouleaux Not Reportable 04/03/19 05:47 Not Reportable 04/03/19 05:47 Not Reportable 04/03/19 05:47 Not Reportable 04/03/19 05:47 Not Reportable 04/03/19 05:47 Hem Pathologist Commnt Sent to pathology 04/03/19 05:47 PT 12.7 Sec. (12.2-14.9) 04/01/19 14:16 INR 0.98 (0.87-1.13) 04/01/19 14:16 APTT 24.9 Sec. (24.2-36.6) 04/01/19 14:16 Sodium 139 mmol/L (137-145) 04/03/19 05:47 Potassium 3.7 mmol/L (3.6-5.0) 04/03/19 05:47 Chloride 100.7 mmol/L (98-107) 04/03/19 05:47 Carbon Dioxide 28 mmol/L (22-30) 04/03/19 05:47 14 mmol/L 04/03/19 05:47 BUN 9 mg/dL (7-17) 04/03/19 05:47 0.6 mg/dL (0.7-1.2) L 04/03/19 05:47 Estimated GFR > 60 ml/min 04/03/19 05:47 15 % 04/03/19 05:47 Glucose 98 mg/dL (65-100) 04/03/19 05:47 Calcium 9.1 mg/dL (8.4-10.2) 04/03/19 05:47 Iron 53 ug/dL (37-170) 04/02/19 04:44 TIBC 259 mcg/dL (250-450) 04/02/19 04:44 63.0 ng/mL (13.0-400.0) 04/02/19 04:44 0.30 mg/dL (0.1-1.2) 04/02/19 04:44 AST 36 units/L (5-40) 04/02/19 04:44 ALT 41 units/L (7-56) 04/02/19 04:44 136 units/L (35-129) H 04/02/19 04:44 7.1 g/dL (6.3-8.2) 04/02/19 04:44 3.3 g/dL (3.9-5) L 04/02/19 04:44 0.9 % 04/02/19 04:44 Vitamin B12 575.2 pg/mL (211-911) 04/02/19 04:44 6.81 ng/mL (7.3-26.0) L 04/02/19 04:44 Blood Type O POSITIVE 04/01/19 14:20 Antibody Screen Negative 04/01/19 14:20 Active Medications - Current Medications Current Medications: Generic Name Dose Route Start Last Admin Trade Name Satyaq PRN Reason Stop Dose Admin Albuterol 2.5 mg 04/01/19 18:30 Proventil IH Q3HRT PRN Shortness Of Breath Docusate Sodium 100 mg 04/04/19 22:00 04/05/19 10:24 Colace PO 100 mg BID HODAN Administration Famotidine 20 mg 04/04/19 10:00 04/05/19 10:24 Pepcid PO 20 mg BID HODAN Administration Folic Acid 1 mg 04/02/19 14:00 04/05/19 10:24 Folvite PO 1 mg QDAY HODAN Administration Metoprolol Tartrate 50 mg 04/05/19 10:00 04/05/19 10:24 Lopressor PO 50 mg BID HODAN Administration Morphine Sulfate 2 mg 04/05/19 09:30 04/05/19 17:06 Morphine IV 2 mg Q4H PRN Administration Pain, Moderate (4-6) Prednisone 80 mg 04/05/19 16:00 04/05/19 17:02 Deltasone PO 20 mg QDAY HODAN Administration Sodium Chloride 10 ml 04/01/19 22:00 04/05/19 12:02 Sodium Chloride Flush Syringe 10 Ml IV Not Given BID HODAN Sodium Chloride 10 ml 04/01/19 18:30 Sodium Chloride Flush Syringe 10 Ml IV PRN PRN LINE FLUSH
--- NOTE | 2019-04-05 23:57 | Hem/Onc Progress Note ---
Assessment and Plan 1. 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 The etiology is not clear, usually they have viral etiology preceding, or medication. 2. h/o Oral ecchymosis secondary to low platelets 3. History of glaucoma. 4. IVIG, smear evaluation, deficiency investigation. steroids 04/05 - h/o nose bleed low folate - replacement plt still low - s/p 4 days of ivig pt on antacids and steroids pharmacy called - shortage of ivig path called - low plt - no other wbc abnormality s/p plt transfusion if no improvement - splenectomy vs rituxan - vs need more time for steroids to act? 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 3r line Rituxan an option - d/w pt reg transfer as we cannot give rituxan here d/w [facility] transfer service- they have accepted - bed pending d/w pt reg same mouth better - Patient Problems (1) Acute ITP Current Visit: Yes Status: Acute Subjective Date of service: 04/05/19 Principal diagnosis: ITP Interval history: mouth better Objective - Constitutional Vitals: Last Vital Signs Temp 98 F 04/05/19 20:00 Pulse 74 04/05/19 21:18 Resp 20 04/05/19 18:00 BP 132/80 04/05/19 21:18 Pulse Ox 97 04/05/19 18:00 - Labs Lab Results: Laboratory Results - last 24 hr 04/05/19 04:55 WBC 7.5 RBC 4.60 Hgb 12.0 Hct 36.1 MCV 78 L MCH 26 L MCHC 33 RDW 15.3 H Plt Count 6 L* Lymph % (Auto) 13.0 L [place] % (Auto) 12.1 H Eos % (Auto) 0.2 Baso % (Auto) 0.1 Lymph # 1.0 L [place] # 0.9 H Eos # 0.0 Baso # 0.0 Seg Neutrophils % 74.6 H Seg Neutrophils # 5.6 Medications & Allergies - Medications Allergies/Adverse Reactions: Allergies No Known Allergies Allergy (Unverified 06/15/18 10:59) Home Medications: Home Medications Medication Instructions Recorded Confirmed Last Taken Type Prednisone [predniSONE 10 mg 10 mg PO .TAPER #1 tab.ds.pk 03/30/19 04/02/19 04/02/19 Rx (6-Day Pack, 21 Tabs)] Latanoprost 0.005% [Xalatan 0.005%] 1 drop OU HS 04/02/19 04/02/19 Unknown History Active Medications: Generic Name Dose Route Start Last Admin Trade Name Freq PRN Reason Stop Dose Admin Albuterol 2.5 mg 04/01/19 18:30 Proventil IH Q3HRT PRN Shortness Of Breath Docusate Sodium 100 mg 04/04/19 22:00 04/05/19 21:17 Colace PO 100 mg BID HODAN Administration Famotidine 20 mg 04/04/19 10:00 04/05/19 21:18 Pepcid PO 20 mg BID HODAN Administration Folic Acid 1 mg 04/02/19 14:00 04/05/19 10:24 Folvite PO 1 mg QDAY HODAN Administration Metoprolol Tartrate 50 mg 04/05/19 10:00 04/05/19 21:18 Lopressor PO 50 mg BID HODAN Administration Morphine Sulfate 2 mg 04/05/19 09:30 04/05/19 17:06 Morphine IV 2 mg Q4H PRN Administration Pain, Moderate (4-6) Prednisone 80 mg 04/05/19 16:00 04/05/19 17:02 Deltasone PO 20 mg QDAY HODAN Administration Sodium Chloride 10 ml 04/01/19 22:00 04/05/19 21:18 Sodium Chloride Flush Syringe 10 Ml IV 10 ml BID HODAN Administration Sodium Chloride 10 ml 04/01/19 18:30 Sodium Chloride Flush Syringe 10 Ml IV PRN PRN LINE FLUSH
[2019-04-06 04:34] LABS: Hematocrit 38.9 % (30.3-42.9); Hemoglobin 12.8 gm/dl (10.1-14.3); Mean Corpuscular HGB Conc 33 % (30-34); Mean Corpuscular Volume 79 fl (79-97); Red Blood Count 4.94 M/mm3 (3.65-5.03); Red Cell Distribution Width 15.3 % (13.2-15.2)
[2019-04-06 04:41] LABS: Platelet Count 13 K/mm3 (140-440)
[2019-04-06] MEDS: PEPCID PO SCH (09:55)
[2019-04-06] MEDS: SODIUM CHLORIDE FLUSH SYRINGE 10 ML IV SCH (09:55)
[2019-04-06] MEDS: LOPRESSOR PO SCH (09:56)
[2019-04-06] MEDS: FOLVITE PO SCH (09:56)
[2019-04-06] MEDS: DELTASONE PO SCH (09:56)
[2019-04-06] MEDS: COLACE PO SCH (10:01)
[2019-04-06 15:11] LABS: Hematocrit 38.8 % (30.3-42.9); Hemoglobin 12.6 gm/dl (10.1-14.3); Mean Corpuscular HGB Conc 33 % (30-34); Mean Corpuscular Volume 79 fl (79-97); Red Blood Count 4.89 M/mm3 (3.65-5.03)
[2019-04-06 15:34] LABS: Platelet Count 10 K/mm3 (140-440)
[2019-04-06 18:38] VITALS: BP 162/104
== END 2019-04-06 19:00 | disposition short-term general hospital (02) | DRG 813 ==
LOC: ED 12:13 → IMCU 18:30
PROVIDERS: ADMIT Internal Medicine; ATTEND Internal Medicine
PROC: 30233R1 Transfusion of Nonautologous Platelets into Peripheral Vein, Percutaneous Approach (ICD-10-PCS; principal; 2019-04-03)
DX: D69.3 Immune thrombocytopenic purpura (principal); H40.9 Unspecified glaucoma; D69.6 Thrombocytopenia, unspecified; R58 Hemorrhage, not elsewhere classified; R04.0 Epistaxis; Z79.899 Other long term (current) drug therapy
CPT/HCPCS: 36415; 36430; 80048; 80053; 82607; 82728; 82747; 83550; 85007; 85025; 85027; 85610; 85730; 86850; 86900; 86901; G0378; J0360; J1459; J2270; J7040; J7512; P9035

== ENCOUNTER 2020-09-09 10:04 | Outpatient (CLI) | payer OTHER ==
--- NOTE | 2020-09-09 12:41 | XRay Report ---
LUMBAR SPINE 3 VIEWS INDICATION / CLINICAL INFORMATION: BACK PAIN. COMPARISON: Prior CT of the pelvis dated 06/15/2018. FINDINGS: VERTEBRAE: No acute fracture. Grade 1 anterolisthesis is noted at the L3-L4 level. Mild retrolisthesi s is noted at the L4-L5 and L5-S1 levels. DISC SPACES / FACET JOINTS:Multilevel degenerative changes are noted of the lumbar spine most promine nt at L3-L4 with endplate sclerosis. Loss of intervertebral disc space height and marginal osseous me tastases are also noted at L4-L5 and L5-S1 with facet arthropathy. MRI would be helpful for further c haracterization. PARASPINAL SOFT TISSUES:No significant abnormality. ADDITIONAL FINDINGS: None. Signer Name: Dany Tinajero MD Signed: 09/09/2020 12:36 PM Workstation Name: [email or web address]
== END 2020-09-09 10:05 | disposition home or self-care (01) ==
LOC: XRAY 10:04
PROVIDERS: ATTEND Internal Medicine
DX: M43.16 Spondylolisthesis, lumbar region (principal); M47.816 Spondylosis without myelopathy or radiculopathy, lumbar region; G95.89 Other specified diseases of spinal cord; R29.890 Loss of height; C79.9 Secondary malignant neoplasm of unspecified site; M54.5 Low back pain
CPT/HCPCS: 72100